=== PATIENT | male | born 1960 | race Caucasian/White ===

== ENCOUNTER 2017-06-23 16:08 | Inpatient (IN) | payer MEDICARE ==
[2017-06-23] MEDS: IPRATROPIUM BROMIDE 0.5 MG/2.5 ML NEBU. NEB (16:42)
[2017-06-23] MEDS: ALBUTEROL SULFATE 2.5 MG/3 ML NEBU. CONT NEB (16:44)
[2017-06-23 16:57] LABS: INFLUENZA A PATIENT NEGATIVE (NEGATIVE); INFLUENZA B PATIENT NEGATIVE (NEGATIVE); OBC FLU VALID
[2017-06-23] MEDS ORDERED: dilTIAZem IV PUSH 25 MG/5 ML VIAL (17:03)
[2017-06-23] MEDS: dilTIAZem IV PUSH 25 MG/5 ML VIAL IVP (17:05)
[2017-06-23] MEDS: methylPREDNISolone SOD SUCC PF 125 MG/2 ML VIAL. IV (17:06)
[2017-06-23 17:10] LABS: ADD MAN DIFF? YES; BASO % 0 % (0-3); EOS % 0 % (0-3); HEMATOCRIT 40.1 % (39.0-53.0); HEMOGLOBIN 13.6 g/dL (13.0-17.5); LYMPH # 0.9 x10^3/uL (1.0-4.8); LYMPH % 4 % (24-48); MEAN CORPUSCULAR HEMOGLOBIN 31 pg (25-35); MEAN CORPUSCULAR HGB CONC 34 g/dL (31-37); MEAN CORPUSCULAR VOLUME 90 fL (79-100); MONO # 2.3 x10^3/uL (0.0-1.1); MONO % 10 % (0-9); NEUT # 19.3 x10^3uL (1.8-7.7); NEUT % 86 % (31-73); PLATELET COUNT 412 x10^3/uL (140-400); RED BLOOD COUNT 4.46 x10^6/uL (4.30-5.70); RED CELL DISTRIBUTION WIDTH 13.6 % (11.5-14.5); WHITE BLOOD COUNT 22.5 x10^3/uL (4.0-11.0)
[2017-06-23] MEDS: dilTIAZem VIAL 125 MG in IV DEXTROSE 5% 100 ML IV (17:13)
[2017-06-23 17:26] LABS: ANION GAP 6 (6-14); BLOOD UREA NITROGEN 29 mg/dL (8-26); BUN/CREATININE RATIO 22 (6-20); CALCIUM 9.4 mg/dL (8.5-10.1); CARBON DIOXIDE 32 mmol/L (21-32); CHLORIDE 88 mmol/L (98-107); CREATININE 1.3 mg/dL (0.7-1.3); GFR 56.5; GLUCOSE 164 mg/dL (70-99); POTASSIUM 4.1 mmol/L (3.5-5.1); SODIUM 126 mmol/L (136-145)
[2017-06-23] MEDS: OSELTAMIVIR 75 MG CAPSULE PO (17:26)
[2017-06-23 17:32] LABS: ALBUMIN 2.7 g/dL (3.4-5.0); ALBUMIN/GLOBULIN RATIO 0.5 (1.0-1.7); ALK PHOS 118 U/L (46-116); ALT (SGPT) 13 U/L (16-63); AST (SGOT) 19 U/L (15-37); TOTAL BILIRUBIN 0.4 mg/dL (0.2-1.0); TOTAL PROTEIN 8.4 g/dL (6.4-8.2)
[2017-06-23 17:34] LABS: LACTIC ACID 1.8 mmol/L (0.4-2.0)
[2017-06-23 17:35] LABS: TROPONINI < 0.017 ng/mL (0.000-0.055)
[2017-06-23 17:40] LABS: NT-PRO BNP 6292 pg/mL (0-124)
[2017-06-23] MEDS ORDERED: ACETAMINOPHEN 500 MG TABLET PO (18:00)
[2017-06-23] MEDS ORDERED: ONDANSETRON PF 4 MG/2 ML VIAL. IV (18:00)
[2017-06-23 18:07] LABS: BASE EXCESS COOX 1 mmol/L (-3-3); HCO3 COOX 30 mmol/L (21-28); METHEMOGLOBIN 0.5 % (0.0-1.9); OXYHEMOGLOBIN 88.4 %; PH COOX 7.29 (7.35-7.45); PO2 COOX 65 mmHg (65-108); SAT O2 COOX 90 % (92-99); TOTAL HEMOGLOBIN 14.5 g/dL
[2017-06-23 18:09] LABS: PCO2 COOX 64 mmHg (35-46)
[2017-06-23 18:10] LABS: FIO2 COOX 30
[2017-06-23] MEDS: AZITHRMYCN 500MG IVPB FOR OMNI 250 ML IV (18:12)
[2017-06-23 18:31] LABS: THYROID STIM HORMONE (TSH) 0.208 uIU/mL (0.358-3.74)
[2017-06-23] MEDS: FUROSEMIDE 40 MG/4 ML VIAL. IVP (18:41)
[2017-06-23] MEDS: MORPHINE SULFATE 2 MG/ML DISP.SYRIN. IV (18:42)
[2017-06-23 18:51] LABS: % BANDS 14 % (0-9); % LYMPHS 5 % (24-48); % MONOS 7 % (0-10); % SEGS 74 % (35-66); PLT ESTIMATE ADEQUATE (ADEQUATE); TOXIC GRANULATION SLIGHT; TOXIC VACUOLATION SLIGHT
[2017-06-23] MEDS ORDERED: MORPHINE SULFATE 4 MG/ML DISP.SYRIN. IV (19:00)
[2017-06-23] MEDS: LACTOBACILLUS RHAMNOSUS GG 1 CAPSULE. PO ×2 (21:00→21:16)
[2017-06-23] MEDS: BENZONATATE 100 MG CAPSULE. PO ×2 (21:00→21:15)
[2017-06-23] MEDS: methylPREDNISolone SOD SUCC PF 40 MG/ML VIAL. IV (21:15)
[2017-06-23 21:42] LABS: LACTIC ACID 1.6 mmol/L (0.4-2.0)
[2017-06-23] MEDS: MORPHINE SULFATE 4 MG/ML DISP.SYRIN. IV (23:18)
[2017-06-24 01:15] LABS: TROPONINI < 0.017 ng/mL (0.000-0.055)
[2017-06-24] MEDS: MORPHINE SULFATE 4 MG/ML DISP.SYRIN. IV (04:05)
[2017-06-24 05:03] LABS: ADD MAN DIFF? NO
[2017-06-24 05:15] LABS: BASO % 0 % (0-3); EOS % 0 % (0-3); HEMATOCRIT 39.5 % (39.0-53.0); HEMOGLOBIN 13.4 g/dL (13.0-17.5); LYMPH # 0.7 x10^3/uL (1.0-4.8); LYMPH % 4 % (24-48); MEAN CORPUSCULAR HEMOGLOBIN 31 pg (25-35); MEAN CORPUSCULAR HGB CONC 34 g/dL (31-37); MEAN CORPUSCULAR VOLUME 91 fL (79-100); MONO # 0.8 x10^3/uL (0.0-1.1); MONO % 4 % (0-9); NEUT # 17.5 x10^3uL (1.8-7.7); NEUT % 92 % (31-73); PLATELET COUNT 419 x10^3/uL (140-400); RED BLOOD COUNT 4.35 x10^6/uL (4.30-5.70); RED CELL DISTRIBUTION WIDTH 14.2 % (11.5-14.5); WHITE BLOOD COUNT 18.9 x10^3/uL (4.0-11.0)
[2017-06-24 05:31] LABS: ANION GAP 3 (6-14); BLOOD UREA NITROGEN 31 mg/dL (8-26); CALCIUM 9.6 mg/dL (8.5-10.1); CARBON DIOXIDE 36 mmol/L (21-32); CHLORIDE 90 mmol/L (98-107); CREATININE 1.2 mg/dL (0.7-1.3); GLUCOSE 175 mg/dL (70-99); POTASSIUM 5.1 mmol/L (3.5-5.1); SODIUM 129 mmol/L (136-145)
[2017-06-24] MEDS: methylPREDNISolone SOD SUCC PF 40 MG/ML VIAL. IV ×3 (05:58→21:26)
[2017-06-24] MEDS: HYDROcodone/APAP 5/325MG 1 TAB TABLET PO ×2 (08:36→16:27)
[2017-06-24] MEDS: BENZONATATE 100 MG CAPSULE. PO ×3 (08:36→20:38)
[2017-06-24] MEDS: NICOTINE 21MG PATCH. TD (08:38)
[2017-06-24] MEDS: LIDOCAINE (700MG/PATCH) PATCH. TD (08:38)
[2017-06-24] MEDS: LACTOBACILLUS RHAMNOSUS GG 1 CAPSULE. PO ×2 (08:39→20:38)
[2017-06-24 09:18] LABS: BASE EXCESS ABG 8 mmol/L (-3-3); HCO3 ABG 35 mmol/L (21-28); PH ABG 7.38 (7.35-7.45); PO2 ABG 71 mmHg (65-108); SAT O2 ABG 94 % (92-99)
[2017-06-24 09:22] LABS: FIO2 ABG 28; PCO2 ABG 62 mmHg (35-46)
[2017-06-24] MEDS ORDERED: hydrALAZINE 20 MG/ML VIAL. IVP (09:30)
[2017-06-24] MEDS ORDERED: ACETAMINOPHEN 325 MG TABLET. PO (09:30)
[2017-06-24] MEDS ORDERED: ONDANSETRON PF 4 MG/2 ML VIAL. IV (09:30)
[2017-06-24] MEDS ORDERED: DOCUSATE SODIUM 100 MG CAPSULE. PO (09:30)
[2017-06-24 10:17] LABS: BILIRUBIN,URINE NEGATIVE (NEG); CLARITY,URINE CLEAR; COLOR,URINE YELLOW; GLUCOSE,URINE NEGATIVE (NEG); NITRITE,URINE NEGATIVE (NEG); PH,URINE 6.5; PROTEIN,URINE 30 mg/dL (NEG-TRACE); UROBILINOGEN,URINE 0.2 mg/dL (0.2 mg/dL)
[2017-06-24 10:34] LABS: BACTERIA,URINE FEW /HPF (0-FEW); WBC,URINE OCC /HPF (0-4)
[2017-06-24 10:35] LABS: AMORPHOUS SEDIMENT,UR PRESENT /HPF; HYALINE CASTS, URINE FEW /HPF
[2017-06-24] MEDS: IPRATRPIUM/ALBUTEROL 0.5/2.5MG 3 ML NEBU. NEB ×3 (13:04→20:01)
[2017-06-24] MEDS: MORPHINE ER 15 MG TABLET.ER PO ×2 (13:15→20:38)
[2017-06-24] MEDS: ASPIRIN ENTERIC COATED 81 MG TABLET.DR. PO (13:15)
[2017-06-24] MEDS: cefTRIAXone IV Push 1 GM VIAL. IVP (17:29)
[2017-06-24] MEDS: ENOXAPARIN 40 MG/0.4 ML SYRINGE. SQ (17:29)
[2017-06-24] MEDS: AZITHROMYCIN 250 MG in IV NORMAL SALINE 250ML 250 ML IV (17:30)
[2017-06-24] MEDS ORDERED: PIP/TAZO PER PHARMACY MC (18:15)
[2017-06-24 20:10] LABS: MRSA BY PCR Negative (Negative)
[2017-06-24] MEDS: PIPERACILLIN/TAZOBACTAM 3.375 GM in IV NORMAL SALINE 50ML 50 ML IV (20:28)
[2017-06-24] MEDS: FAMOTIDINE 20 MG TABLET. PO (20:38)
[2017-06-25] MEDS: PIPERACILLIN/TAZOBACTAM 3.375 GM in IV NORMAL SALINE 50ML 50 ML IV ×6 (00:12→23:50)
[2017-06-25] MEDS: TEMAZEPAM 7.5 MG CAPSULE PO (00:29)
[2017-06-25] MEDS: traMADol 50 MG TABLET PO (00:29)
[2017-06-25] MEDS: HALOPERIDOL LACTATE 5 MG/ML VIAL. IVP ×4 (02:12→19:15)
[2017-06-25] MEDS: MORPHINE SULFATE 4 MG/ML DISP.SYRIN. IV ×3 (03:26→14:29)
[2017-06-25] MEDS: ALBUTEROL SULFATE 2.5 MG/3 ML NEBU. NEB (03:30)
[2017-06-25] MEDS: methylPREDNISolone SOD SUCC PF 40 MG/ML VIAL. IV ×3 (05:24→22:01)
[2017-06-25] MEDS: IPRATRPIUM/ALBUTEROL 0.5/2.5MG 3 ML NEBU. NEB ×4 (07:25→19:48)
[2017-06-25] MEDS: LACTOBACILLUS RHAMNOSUS GG 1 CAPSULE. PO ×2 (09:00→21:00)
[2017-06-25] MEDS: ASPIRIN ENTERIC COATED 81 MG TABLET.DR. PO (09:00)
[2017-06-25] MEDS: MORPHINE ER 15 MG TABLET.ER PO ×3 (09:00→21:00)
[2017-06-25] MEDS: BENZONATATE 100 MG CAPSULE. PO ×3 (09:00→21:00)
[2017-06-25] MEDS: ENOXAPARIN 40 MG/0.4 ML SYRINGE. SQ (13:47)
[2017-06-25] MEDS: diphenhydrAMINE 50 MG/ML VIAL IVP ×2 (14:20→22:28)
[2017-06-25 15:30] LABS: SPECIMEN SOURCE Urine (.); STREP PNEUMO ANTIGEN Negative (Negative)
[2017-06-25] MEDS: AZITHROMYCIN 250 MG in IV NORMAL SALINE 250ML 250 ML IV (18:00)
[2017-06-25] MEDS: FAMOTIDINE 20 MG TABLET. PO (21:00)
[2017-06-26] MEDS: MORPHINE SULFATE 4 MG/ML DISP.SYRIN. IV (00:49)
[2017-06-26] MEDS: guaiFENesin DM 200MG/20MG 10 ML SYRUP PO ×2 (01:32→08:07)
[2017-06-26] MEDS: HALOPERIDOL LACTATE 5 MG/ML VIAL. IVP (02:25)
[2017-06-26] MEDS: PIPERACILLIN/TAZOBACTAM 3.375 GM in IV NORMAL SALINE 50ML 50 ML IV ×4 (05:34→23:40)
[2017-06-26] MEDS: methylPREDNISolone SOD SUCC PF 40 MG/ML VIAL. IV ×3 (05:36→22:09)
[2017-06-26] MEDS: IPRATRPIUM/ALBUTEROL 0.5/2.5MG 3 ML NEBU. NEB ×3 (07:53→14:50)
[2017-06-26] MEDS: LIDOCAINE (700MG/PATCH) PATCH. TD (08:03)
[2017-06-26] MEDS: ASPIRIN ENTERIC COATED 81 MG TABLET.DR. PO (08:04)
[2017-06-26] MEDS: BENZONATATE 100 MG CAPSULE. PO ×3 (08:04→20:24)
[2017-06-26] MEDS: NICOTINE 21MG PATCH. TD (08:07)
[2017-06-26] MEDS: LACTOBACILLUS RHAMNOSUS GG 1 CAPSULE. PO ×2 (08:07→20:24)
[2017-06-26] MEDS: MORPHINE ER 15 MG TABLET.ER PO ×2 (09:00→20:25)
[2017-06-26] MEDS: HYDROcodone/APAP 5/325MG 1 TAB TABLET PO ×4 (12:03→21:04)
[2017-06-26] MEDS: ENOXAPARIN 40 MG/0.4 ML SYRINGE. SQ (12:57)
[2017-06-26] MEDS: AZITHROMYCIN 250 MG in IV NORMAL SALINE 250ML 250 ML IV (18:09)
[2017-06-26] MEDS: FAMOTIDINE 20 MG TABLET. PO (20:24)
[2017-06-26] MEDS: diphenhydrAMINE 50 MG/ML VIAL IVP (20:40)
[2017-06-27] MEDS: TEMAZEPAM 7.5 MG CAPSULE PO (00:39)
[2017-06-27] MEDS: HYDROcodone/APAP 10/325 1 TAB TABLET PO ×5 (02:28→20:12)
[2017-06-27 05:55] LABS: ADD MAN DIFF? NO
[2017-06-27] MEDS: PIPERACILLIN/TAZOBACTAM 3.375 GM in IV NORMAL SALINE 50ML 50 ML IV ×2 (05:56→12:38)
[2017-06-27] MEDS: methylPREDNISolone SOD SUCC PF 40 MG/ML VIAL. IV (05:56)
[2017-06-27 06:02] LABS: BASO % 0 % (0-3); EOS % 0 % (0-3); HEMOGLOBIN 12.2 g/dL (13.0-17.5); LYMPH # 1.5 x10^3/uL (1.0-4.8); LYMPH % 7 % (24-48); MEAN CORPUSCULAR HEMOGLOBIN 30 pg (25-35); MEAN CORPUSCULAR HGB CONC 33 g/dL (31-37); MEAN CORPUSCULAR VOLUME 90 fL (79-100); MONO # 0.7 x10^3/uL (0.0-1.1); MONO % 3 % (0-9); NEUT # 18.3 x10^3uL (1.8-7.7); NEUT % 89 % (31-73); PLATELET COUNT 557 x10^3/uL (140-400); RED CELL DISTRIBUTION WIDTH 14.5 % (11.5-14.5); WHITE BLOOD COUNT 20.5 x10^3/uL (4.0-11.0)
[2017-06-27 06:25] LABS: ANION GAP 6 (6-14); BLOOD UREA NITROGEN 21 mg/dL (8-26); CALCIUM 8.7 mg/dL (8.5-10.1); CARBON DIOXIDE 32 mmol/L (21-32); CHLORIDE 98 mmol/L (98-107); CREATININE 0.9 mg/dL (0.7-1.3); GFR 86.4; GLUCOSE 217 mg/dL (70-99); POTASSIUM 3.9 mmol/L (3.5-5.1); SODIUM 136 mmol/L (136-145)
[2017-06-27] MEDS: IPRATRPIUM/ALBUTEROL 0.5/2.5MG 3 ML NEBU. NEB ×5 (07:33→19:55)
[2017-06-27] MEDS: NICOTINE 21MG PATCH. TD (08:00)
[2017-06-27] MEDS: BENZONATATE 100 MG CAPSULE. PO ×4 (08:01→21:00)
[2017-06-27] MEDS: LIDOCAINE (700MG/PATCH) PATCH. TD (08:01)
[2017-06-27] MEDS: LACTOBACILLUS RHAMNOSUS GG 1 CAPSULE. PO ×2 (08:01→21:11)
[2017-06-27] MEDS: ASPIRIN ENTERIC COATED 81 MG TABLET.DR. PO (08:02)
[2017-06-27] MEDS: MORPHINE ER 15 MG TABLET.ER PO ×2 (08:03→21:11)
[2017-06-27] MEDS: LISINOPRIL 20 MG TABLET PO (08:24)
[2017-06-27] MEDS: diphenhydrAMINE 50 MG/ML VIAL IVP ×2 (08:44→21:10)
[2017-06-27] MEDS: ENOXAPARIN 40 MG/0.4 ML SYRINGE. SQ (13:49)
[2017-06-27] MEDS: FAMOTIDINE 20 MG TABLET. PO (21:00)
[2017-06-27] MEDS: AMOXICILLIN/K CLAV 500/125MG TABLET. PO (21:10)
[2017-06-27 23:12] LABS: C DIFF BY PCR Negative (Negative)
[2017-06-28] MEDS: HYDROcodone/APAP 10/325 1 TAB TABLET PO ×2 (02:37→13:18)
[2017-06-28 05:00] LABS: BASO # 0.1 x10^3/uL (0.0-0.2); BASO % 0 % (0-3); EOS # 0.1 x10^3/uL (0.0-0.7); EOS % 0 % (0-3); HEMATOCRIT 38.7 % (39.0-53.0); HEMOGLOBIN 12.4 g/dL (13.0-17.5); LYMPH # 3.1 x10^3/uL (1.0-4.8); LYMPH % 12 % (24-48); MEAN CORPUSCULAR HEMOGLOBIN 29 pg (25-35); MEAN CORPUSCULAR HGB CONC 32 g/dL (31-37); MEAN CORPUSCULAR VOLUME 90 fL (79-100); MONO # 1.4 x10^3/uL (0.0-1.1); MONO % 5 % (0-9); NEUT # 22.1 x10^3uL (1.8-7.7); NEUT % 83 % (31-73); PLATELET COUNT 600 x10^3/uL (140-400); RED BLOOD COUNT 4.29 x10^6/uL (4.30-5.70); RED CELL DISTRIBUTION WIDTH 14.6 % (11.5-14.5); WHITE BLOOD COUNT 26.7 x10^3/uL (4.0-11.0)
[2017-06-28 05:35] LABS: ADD MAN DIFF? YES
[2017-06-28 05:57] LABS: ANION GAP 4 (6-14); BLOOD UREA NITROGEN 14 mg/dL (8-26); CALCIUM 8.6 mg/dL (8.5-10.1); CARBON DIOXIDE 33 mmol/L (21-32); CHLORIDE 103 mmol/L (98-107); CREATININE 0.7 mg/dL (0.7-1.3); GFR 115.4; GLUCOSE 110 mg/dL (70-99); POTASSIUM 3.6 mmol/L (3.5-5.1); SODIUM 140 mmol/L (136-145)
[2017-06-28] MEDS: MORPHINE ER 15 MG TABLET.ER PO (08:38)
[2017-06-28] MEDS: LACTOBACILLUS RHAMNOSUS GG 1 CAPSULE. PO (08:39)
[2017-06-28] MEDS: ASPIRIN ENTERIC COATED 81 MG TABLET.DR. PO (08:39)
[2017-06-28] MEDS: predniSONE 10 MG TABLET PO (08:40)
[2017-06-28] MEDS: AMOXICILLIN/K CLAV 500/125MG TABLET. PO (08:40)
[2017-06-28] MEDS: LISINOPRIL 20 MG TABLET PO (08:41)
[2017-06-28] MEDS: BENZONATATE 100 MG CAPSULE. PO ×2 (08:41→14:11)
[2017-06-28] MEDS: IPRATRPIUM/ALBUTEROL 0.5/2.5MG 3 ML NEBU. NEB ×3 (09:13→15:59)
[2017-06-28 09:57] LABS: % BANDS 2 % (0-9); % LYMPHS 24 % (24-48); % MONOS 7 % (0-10); % SEGS 67 % (35-66)
[2017-06-28 09:58] LABS: ANISOCYTOSIS SLIGHT; PLT ESTIMATE INCREASED (ADEQUATE); TOXIC GRANULATION PRESENT
[2017-06-30] MEDS ORDERED: predniSONE 20 MG TABLET PO (09:00)
[2017-07-02] MEDS ORDERED: predniSONE 10 MG TABLET PO (09:00)
== END 2017-06-28 16:35 | disposition home or self-care (01) | DRG 177 ==
LOC: ER 16:08 → 1 WEST ICU 17:00 → 2 NORTH 06-24 19:47
PROC: 5A09357 Assistance with Respiratory Ventilation, Less than 24 Consecutive Hours, Continuous Positive Airway Pressure (ICD-10-PCS; principal; 2017-06-23)
PROC: 5A09357 Assistance with Respiratory Ventilation, Less than 24 Consecutive Hours, Continuous Positive Airway Pressure (ICD-10-PCS; 2017-06-24)
PROC: 5A09357 Assistance with Respiratory Ventilation, Less than 24 Consecutive Hours, Continuous Positive Airway Pressure (ICD-10-PCS; 2017-06-25)
DX: J15.6 Pneumonia due to other Gram-negative bacteria (principal); J96.21 Acute and chronic respiratory failure with hypoxia; G93.41 Metabolic encephalopathy; J84.9 Interstitial pulmonary disease, unspecified; E44.0 Moderate protein-calorie malnutrition; E87.1 Hypo-osmolality and hyponatremia; I48.0 Paroxysmal atrial fibrillation; J96.22 Acute and chronic respiratory failure with hypercapnia; I42.9 Cardiomyopathy, unspecified; I50.32 Chronic diastolic (congestive) heart failure; J44.0 Chronic obstructive pulmonary disease with (acute) lower respiratory infection; J44.1 Chronic obstructive pulmonary disease with (acute) exacerbation; I25.3 Aneurysm of heart; I11.0 Hypertensive heart disease with heart failure; E78.00 Pure hypercholesterolemia, unspecified; E78.5 Hyperlipidemia, unspecified; E87.6 Hypokalemia; F17.200 Nicotine dependence, unspecified, uncomplicated; F43.10 Post-traumatic stress disorder, unspecified; G89.29 Other chronic pain; H91.90 Unspecified hearing loss, unspecified ear; I25.10 Atherosclerotic heart disease of native coronary artery without angina pectoris; M06.9 Rheumatoid arthritis, unspecified; M19.90 Unspecified osteoarthritis, unspecified site; F17.210 Nicotine dependence, cigarettes, uncomplicated; T38.0X5A Adverse effect of glucocorticoids and synthetic analogues, initial encounter; Z82.49 Family history of ischemic heart disease and other diseases of the circulatory system; Z86.73 Personal history of transient ischemic attack (TIA), and cerebral infarction without residual deficits; Z91.19 Patient's noncompliance with other medical treatment and regimen; Z95.810 Presence of automatic (implantable) cardiac defibrillator; Y92.89 Other specified places as the place of occurrence of the external cause; Z68.20 Body mass index [BMI] 20.0-20.9, adult; Z88.1 Allergy status to other antibiotic agents
CPT/HCPCS: 36415; 36600; 70450; 71045; 71250; 74176; 80048; 80053; 81001; 82805; 83605; 83880; 84443; 84484; 85007; 85025; 87040; 87324; 87449; 87641; 87804; 87804-59; 93005; 93306; 94640; 94644; 94660; 94760; 96365; 96367; 96375; 97116-GP; 97162-GP; 97166-GO; 97530-GO; 97530-GP; 97535-GO; 99285; 99285-25; 99406; J0456; J0690; J0696; J1200; J1630; J1650; J1940; J2060; J2270; J2543; J2920; J2930; J3490; J7050; J7512; J7613; J7620; J7644

== ENCOUNTER 2018-09-01 00:28 | Inpatient (IN) | payer MEDICARE ==
[2018-09-01] VITALS (20 sets, daily range): BP systolic 89–149; BP diastolic 50–70
[~2018-09-01] VITALS: Ht 175.3 cm; Wt 74.8 kg
[~2018-09-01 00:28] MED LIST: AMOX1TAB10 PO; ASPI-482 PO; BENZ-8 PO; DILT120C85 PO; FAMO20TA5 PO; HYDR-2769 PO; LISI-334 PO; MORP30TA83 PO; PRED-220 PO
[2018-09-01] MEDS ORDERED: methylPREDNISolone SOD SUCC PF 125 MG/2 ML VIAL. IV ONE (00:45)
[2018-09-01 00:54] LABS: BASE EXCESS ABG -2 mmol/L (-3-3); CORRECTED PCO2 ABG 57 mmHg; CORRECTED PH ABG 7.28; CORRECTED PO2 ABG 67 mmHg; HCO3 ABG 26 mmol/L (21-28); SAT O2 ABG 89 % (92-99)
[2018-09-01 00:56] LABS: FIO2 ABG 28; PCO2 ABG 54 mmHg (35-46); PO2 ABG 61 mmHg (65-108)
[2018-09-01] MEDS ORDERED: IPRATRPIUM/ALBUTEROL 0.5/2.5MG 3 ML NEBU. NEB ONE (01:00)
[2018-09-01] MEDS ORDERED: IV NORMAL SALINE 1000ML BAG 1,000 ML IV ONE ×2 (01:00→03:00)
[2018-09-01 01:22] LABS: BASO % 0 % (0-3); EOS % 0 % (0-3); HEMATOCRIT 45.2 % (39.0-53.0); HEMOGLOBIN 14.3 g/dL (13.0-17.5); LYMPH # 0.9 x10^3/uL (1.0-4.8); LYMPH % 5 % (24-48); MEAN CORPUSCULAR HEMOGLOBIN 30 pg (25-35); MEAN CORPUSCULAR HGB CONC 32 g/dL (31-37); MEAN CORPUSCULAR VOLUME 96 fL (79-100); MONO % 6 % (0-9); NEUT # 15.6 x10^3uL (1.8-7.7); NEUT % 89 % (31-73); PLATELET COUNT 239 x10^3/uL (140-400); RED BLOOD COUNT 4.73 x10^6/uL (4.30-5.70); RED CELL DISTRIBUTION WIDTH 17.4 % (11.5-14.5); WHITE BLOOD COUNT 17.6 x10^3/uL (4.0-11.0)
[2018-09-01] MEDS ORDERED: cefTRIAXone IV Push 1 GM VIAL. IVP ONE (01:30)
[2018-09-01 01:31] LABS: CREATININE 1.8 mg/dL (0.7-1.3); GFR 38.7; POTASSIUM 5.3 mmol/L (3.5-5.1)
[2018-09-01 01:44] LABS: ALBUMIN 4.2 g/dL (3.4-5.0); ALBUMIN/GLOBULIN RATIO 1.2 (1.0-1.7); MAGNESIUM 2.9 mg/dL (1.8-2.4); TOTAL BILIRUBIN 0.5 mg/dL (0.2-1.0); TOTAL PROTEIN 7.8 g/dL (6.4-8.2)
--- NOTE | 2018-09-01 02:05 | RAD ---
PQRS Compliance Statement: One or more of the following individualized dose reduction techniques were utilized for this examination: 1. Automated exposure control 2. Adjustment of the mA and/or kV according to patient size 3. Use of iterative reconstruction technique CT HEAD AND CERVICAL SPINE WITHOUT CONTRAST History: Altered mental status, trauma. Comparison: CT head without contrast, June 25, 2017. Procedure: Axial images are obtained of the head from the skull base through the vertex without IV contrast. Noncontrast helical CT of the cervical spine was performed. Axial, sagittal, and coronal reconstructions were obtained. Findings: The ventricles and sulci are normal for the patient's age. There is mild supratentorial white matter hypoattenuation. This is a nonspecific finding but is commonly due to chronic small vessel ischemic disease in a patient of this age. No mass-effect, midline shift, hemorrhage or obvious acute infarction is identified. Basilar cisterns are patent. Bone windows demonstrate no significant calvarial abnormality. There is mucus retention cyst or polyp in the left maxillary sinus, incompletely imaged. Mucosal thickening bilateral ethmoid and left sphenoid sinuses. Mastoid air cells are well aerated. There is no evidence of acute fracture or acute malalignment of the cervical spine. No perched or jumped facet joints. Facet joints are mildly hypertrophic. There is disc space narrowing and degenerative endplate spurring and uncinate process hypertrophy of C5/C6, C6/C7, and C7/T1. There is minimal grade 1 retrolisthesis of C4 on C5. The alignment is otherwise maintained. The cranial vertebral junction is intact. Visualized soft tissues of the neck demonstrate no significant abnormalities. Mild biapical pleural parenchymal scarring. The visualized lung apices are otherwise clear. Right chest cardiac pacer wires are partially seen. IMPRESSION: 1. No acute intracranial abnormality. 2. No acute fracture of the cervical spine. Electronically signed by: Sergio Cancino MD (09/01/2018 2:03 AM) [facility]
[2018-09-01 02:07] LABS: ACETAMIN < 2 mcg/ml (10-30); ETHANOL < 10 mg/dL (0-10); SALIC 2.8 mg/dL (2.8-20.0)
--- NOTE | 2018-09-01 02:15 | PHYS DOC ---
Past Medical History Past Medical History: COPD, High Cholesterol Additional Past Medical Histor: vtach/a.fib PTSD Past Surgical History: Pacemaker Additional Past Surgical Histo: pacemaker/defib. back sx Alcohol Use: None Drug Use: None Adult General Chief Complaint Chief Complaint: OVERDOSE HPI HPI Patient is a 58 year old male brought in by ambulance chief complaint of altered mental status and shortness of breath. did tell me was sick for 3 days with cough hypoxic yesterday into the 60s he does take morphine and hydrocodone every day allegedly did not take any extra pills per the paramedics sat was in the mid 60s they did go out once and then they went back shortly later because he had tried to refuse transport. They did give 0.4 Narcan with improvement in mental status he was breathing 7 times a minute and then when they gave him Narcan he was breathing about 20 times a minute after that. He is satting okay on 3 L nasal cannula for the paramedics he is not normally on oxygen. SAYS HES Been feeling warm to the touch she's been coughing last co uple of days WELL. He is still smoking. He also fell earlier today he hit his for head he complains of some neck pain as well we placed him in a collar immediately upon arrival to the emergency room. Patient also describes lower abdominal pain left-sided difficult to obtain further history due to the patient's altered mental status. Review of Systems Review of Systems Limited by altered mental status Current Medications Current Medications Current Medications Medications (Trade) Dose Ordered Sig/Lolis Start Time Stop Time Status Last Admin Dose Admin Albuterol/ Ipratropium (Duoneb) 3 ml 1X ONCE 09/01/18 01:00 09/01/18 01:01 DC 09/01/18 00:59 3 ML Ceftriaxone Sodium (Rocephin) 1 gm 1X ONCE 09/01/18 01:30 09/01/18 01:31 DC 09/01/18 01:54 1 GM Doxycycline Hyclate 100 mg/ Dextrose 100 ml @ 50 mls/hr 1X ONCE 09/01/18 02:30 09/01/18 04:29 09/01/18 02:21 50 MLS/HR Methylprednisolone Sodium Succinate (SOLU-Medrol 125MG VIAL) 125 mg 1X ONCE 09/01/18 00:45 09/01/18 00:57 DC 09/01/18 00:53 125 MG Sodium Chloride 1,000 ml @ 1,000 mls/hr 1X ONCE 09/01/18 01:00 09/01/18 01:59 DC 09/01/18 00:54 1,000 MLS/HR Allergies Allergies Allergies Coded Allergies Type Severity Reaction Last Updated Verified bupropion Allergy Intermediate 04/17/16 Yes Physical Exam Physical Exam Constitutional: Well developed, overall ill-appearing pale dry mucous membranes HENT: Normocephalic, abrasion noted forehead., bilateral external ears normal, oropharynx , no oral exudates, nose normal. [] Eyes: PERRLA, EOMI, conjunctiva normal, no discharge. [] Pupils were 3 mm and reactive bilaterally Neck: Normal range of motion, midline tenderness noted C3-4 collar placed urgently Cardiovascular: Mild tachycardia no definite murmurs Lungs & Thorax: Left greater than right wheezing. Abdomen: Bowel sounds normal, soft, left lower quadrant tenderness, no masses, no pulsatile masses. Skin: Warm, dry, no erythema, no rash. Back: Tenderness to palpation on the back Extremities: No tenderness, no cyanosis, no clubbing, ROM intact, trace edema Neurologic: Alert and oriented X 2, normal motor function, normal sensory function, no focal deficits noted. Psychologic: Affect normal, judgement normal, mood normal. Current Patient Data Vital Signs Vital Signs Date Time Temp Pulse Resp B/P (MAP) Pulse Ox O2 Delivery O2 Flow Rate FiO2 09/01/18 01:49 BiPAP/CPAP 09/01/18 01:49 90 09/01/18 01:41 122 138/69 (92) 3.0 09/01/18 00:28 101.3 13 101.3 Lab Values Laboratory Tests Test 09/01/18 00:43 09/01/18 00:50 09/01/18 01:00 09/01/18 02:15 White Blood Count 17.6 x10^3/uL (4.0-11.0) H Red Blood Count 4.73 x10^6/uL (4.30-5.70) Hemoglobin 14.3 g/dL (13.0-17.5) Hematocrit 45.2 % (39.0-53.0) Mean Corpuscular Volume 96 fL (79-100) Mean Corpuscular Hemoglobin 30 pg (25-35) Mean Corpuscular Hemoglobin Concent 32 g/dL (31-37) Red Cell Distribution Width 17.4 % (11.5-14.5) H Platelet Count 239 x10^3/uL (140-400) Neutrophils (%) (Auto) 89 % (31-73) H Lymphocytes (%) (Auto) 5 % (24-48) L Monocytes (%) (Auto) 6 % (0-9) Eosinophils (%) (Auto) 0 % (0-3) Basophils (%) (Auto) 0 % (0-3) Neutrophils # (Auto) 15.6 x10^3uL (1.8-7.7) H Lymphocytes # (Auto) 0.9 x10^3/uL (1.0-4.8) L Monocytes # (Auto) 1.0 x10^3/uL (0.0-1.1) Eosinophils # (Auto) 0.0 x10^3/uL (0.0-0.7) Basophils # (Auto) 0.0 x10^3/uL (0.0-0.2) Platelet Estimate Pending Sodium Level 140 mmol/L (136-145) Potassium Level 5.3 mmol/L (3.5-5.1) H Chloride Level 99 mmol/L (98-107) Carbon Dioxide Level 28 mmol/L (21-32) Anion Gap 13 (6-14) Blood Urea Nitrogen 37 mg/dL (8-26) H Creatinine 1.8 mg/dL (0.7-1.3) H Estimated GFR (Cockcroft-Gault) 38.7 BUN/Creatinine Ratio 21 (6-20) H Glucose Level 130 mg/dL (70-99) H Calcium Level 9.0 mg/dL (8.5-10.1) Magnesium Level 2.9 mg/dL (1.8-2.4) H Total Bilirubin 0.5 mg/dL (0.2-1.0) Aspartate Amino Transferase (AST) 572 U/L (15-37) H Alanine Aminotransferase (ALT) 75 U/L (16-63) H Alkaline Phosphatase 103 U/L (46-116) Troponin I Quantitative 0.089 ng/mL (0.000-0.055) OH-Xfb-R-Type Natriuretic Peptide 6612 pg/mL (0-124) H Total Protein 7.8 g/dL (6.4-8.2) Albumin 4.2 g/dL (3.4-5.0) Albumin/Globulin Ratio 1.2 (1.0-1.7) Salicylates Level 2.8 mg/dL (2.8-20.0) Salicylate Last Dose Date Salicylate Last Dose Time Acetaminophen Level < 2 mcg/ml (10-30) L Acetaminophen Last Dose Date Acetaminophen Last Dose Time Ethyl Alcohol Level < 10 mg/dL (0-10) O2 Saturation 89 % (92-99) L Arterial Blood pH 7.30 (7.35-7.45) L Arterial Blood pH (Temp corrected) 7.28 Arterial Blood pCO2 at Patient Temp 54 mmHg (35-46) H Arterial Blood pCO2 (Temp correct) 57 mmHg Arterial Blood pO2 at Patient Temp 61 mmHg (65-108) L Arterial Blood pO2 (Temp corrected) 67 mmHg Arterial Blood HCO3 26 mmol/L (21-28) Arterial Blood Base Excess -2 mmol/L (-3-3) FiO2 28 Lactic Acid Level 2.5 mmol/L (0.4-2.0) H Urine Collection Type U cath Urine Color Franca Urine Clarity Clear Urine pH 5.0 Urine Specific [place] 1.025 Urine Protein Negative mg/dL (NEG-TRACE) Urine Glucose (UA) Negative mg/dL (NEG) Urine Ketones (Stick) Negative mg/dL (NEG) Urine Blood Large (NEG) Urine Nitrite Negative (NEG) Urine Bilirubin Small (NEG) Urine Urobilinogen Dipstick 0.2 mg/dL (0.2 mg/dL) Urine Leukocyte Esterase Negative (NEG) Urine RBC 0 /HPF (0-2) Urine WBC Occ /HPF (0-4) Urine Squamous Epithelial Cells Occ /LPF Urine Amorphous Sediment Present /HPF Urine Bacteria 0 /HPF (0-FEW) Urine Hyaline Casts Moderate /HPF Urine Granular Casts Occasional /HPF Urine Mucus Marked /LPF Urine Opiates Screen Pos (NEG) Urine Methadone Screen Neg (NEG) Urine Barbiturates Neg (NEG) Urine Phencyclidine Screen Neg (NEG) Urine Amphetamine/Methamphetamine Neg (NEG) Urine Benzodiazepines Screen Pos (NEG) Urine Cocaine Screen Neg (NEG) Urine Cannabinoids Screen Neg (NEG) Urine Ethyl Alcohol Neg (NEG) Laboratory Tests 09/01/18 00:43 Laboratory Tests 09/01/18 00:43 EKG EKG Sinus tach rate 111 RSR prime pattern in V1 and V2 no STEMI[] Radiology/Procedures Radiology/Procedures [] Impressions: Chest x-rays appeared very poor quality film is rotated there may be a left middle lung area infiltrate, looks different than previous chest x-ray. PQRS Compliance Statement: One or more of the following individualized dose reduction techniques were utilized for this examination: 1. Automated exposure control 2. Adjustment of the mA and/or kV according to patient size 3. Use of iterative reconstruction technique CT HEAD AND CERVICAL SPINE WITHOUT CONTRAST History: Altered mental status, trauma. Comparison: CT head without contrast, June 25, 2017. Procedure: Axial images are obtained of the head from the skull base through the vertex without IV contrast. Noncontrast helical CT of the cervical spine was performed. Axial, sagittal, and coronal reconstructions were obtained. Findings: The ventricles and sulci are normal for the patient's age. There is mild supratentorial white matter hypoattenuation. This is a nonspecific finding but is commonly due to chronic small vessel ischemic disease in a patient of this age. No mass-effect, midline shift, hemorrhage or obvious acute infarction is identified. Basilar cisterns are patent. Bone windows demonstrate no significant calvarial abnormality. There is mucus retention cyst or polyp in the left maxillary sinus, incompletely imaged. Mucosal thickening bilateral ethmoid and left sphenoid sinuses. Mastoid air cells are well aerated. There is no evidence of acute fracture or acute malalignment of the cervical spine. No perched or jumped facet joints. Facet joints are mildly hypertrophic. There is disc space narrowing and degenerative endplate spurring and uncinate process hypertrophy of C5/C6, C6/C7, and C7/T1. There is minimal grade 1 retrolisthesis of C4 on C5. The alignment is otherwise maintained. The cranial vertebral junction is intact. Visualized soft tissues of the neck demonstrate no significant abnormalities. Mild biapical pleural parenchymal scarring. The visualized lung apices are otherwise clear. Right chest cardiac pacer wires are partially seen. IMPRESSION: 1. No acute intracranial abnormality. 2. No acute fracture of the cervical spine. Electronically signed by: Sergio Cancino MD (09/01/2018 2:03 AM) [facility] DICTATED and SIGNED BY: SERGIO CANCINO MD DATE: 09/01/18 0203 PQRS Compliance Statement: One or more of the following individualized dose reduction techniques were utilized for this examination: 1. Automated exposure control 2. Adjustment of the mA and/or kV according to patient size 3. Use of iterative reconstruction technique CT ABDOMEN PELVIS WO CONTRAST Clinical Indication: Left lower quadrant pain, fever. Comparison: CT chest abdomen and pelvis without contrast, June 24, 2017. Technique: Helical CT imaging of the abdomen and pelvis is performed without IV or oral contrast. Findings: Evaluation of solid organs and bowel is limited without oral and IV contrast, decreasing sensitivity for detection of pathology. There are cardiac pacer wires. Cardiac size is normal. Respiratory motion artifact in the lung bases. Mild atelectasis in the left lower lobe and right middle lobe. Stable nodule in the left lower lobe, image 6. Calcified granulomas in the spleen. Liver, gallbladder, pancreas, and adrenal glands are normal. Mild atherosclerotic calcification of the abdominal aorta, no aneurysm. No hydronephrosis. Stomach unremarkable. There is a dilated small bowel loop in the left midabdomen. No evidence of obstruction. The appendix is normal. Moderate colon stool volume. No colon wall thickening is seen. No abdominal adenopathy or free fluid. The urinary bladder is markedly distended, otherwise normal. Prostate size normal. No pelvic free fluid is seen. There is posterior fusion of L5-S1. There is interbody spacer of L5/S1. IMPRESSION: 1. Urinary bladder is markedly distended. 2. Dilated small bowel loop in the left midabdomen. No evidence of obstruction. 3. Moderate colon stool volume. Electronically signed by: Sergio Cancino MD (09/01/2018 2:19 AM) [facility] DICTATED and SIGNED BY: SERGIO CANCINO MD DATE: 09/01/18218 Hydropic gallbladder. There is cholelithiasis. Gallbladder wall thickness upper limits of normal measuring 3 mm. Sonographic Baker sign is negative. Common bile duct caliber is normal measuring 5 mm in diameter. The right kidney measures 10.6 cm in length and is without evidence of obstruction. Lower pole of the right kidney is incompletely visualized due to overlying bowel gas. Visualized portions of the aorta and IVC have normal caliber. IMPRESSION: Hydropic gallbladder. Cholelithiasis. Electronically signed by: Sergio Cancino MD (09/01/2018 3:55 AM) [facility] Course & Med Decision Making Course & Med Decision Making Pertinent Labs and Imaging studies reviewed. (See chart for details) []58-year-old male with multiple medical problems presenting with acute hypoxemic as well as hypercapnic respiratory failure. Fever noted septic workup initiated chest x-ray suggestive of possible pneumonia but it is a very poor quality films we had a CT abdomen and pelvis to search for other etiology that was essentially negative acute. Patient appears to be basically at his baseline mental status does have some head trauma but otherwise no obvious signs of meningitis. Of note patient did have good response to Narcan with the paramedics went from breathing 7 times a minute into the 20s perhaps he had aspiration event in the setting of that We gave antibiotics in the emergency room ceftriaxone and doxycycline IV fluid resuscitation. Repeat lactate was ordered for later. Regarding his respiratory failure he was stable on nasal cannula oxygenation but his PaO2 was 60.6 borderline given the elevated CO2 we did opt to place him on BiPAP for stabilization. Noted the troponin elevation is likely related to the myocardial strain in the setting of sepsis less likely acute coronary event Elevated AST unclear etiology did have some report of right upper quadrant pain by history with the although really not tender in that area abdominal ultra sound has been ordered CK is also pending. Drug screen so far negative Critical care time was 45 minutes exclusive of procedures. On reevaluation the patient looked much better after BiPAP treatment at 2:40 AM he was alert eyes open to voice says his breathing feels better. Admit to the ICU care of Dr. perry 2100 out of the bladder with a Khan catheter patient was unable to urinate Noted the elevated creatinine as well as elevated potassium this may be related to renal failure in setting of sepsis and/or postobstructive related to the above urinary retention should improve with IV fluid resuscitation and Khan catheter placement 4:30 AM noted the final read of the ultrasound. No definite cholecystitis on that I did put in for routine surgery consultation in the morning. Patient has multiple other medical issues including respiratory failure renal failure troponin leak etc. requiring stabilization prior to any intervention anyway. Dragon Disclaimer Dragon Disclaimer This electronic medical record was generated, in whole or in part, using a voice recognition dictation system. Departure Departure Impression: Primary Impression: Respiratory failure Additional Impressions: Severe sepsis Lactic acidosis Elevated LFTs Disposition: ADMITTED INPATIENT Admitting Physician: Guzman Perry Condition: GUARDED Referrals: ADRIANE DURAND (PCP) Problem Qualifiers CARTER COOK MD September 01, 2018 02:15
--- NOTE | 2018-09-01 02:22 | RAD ---
PQRS Compliance Statement: One or more of the following individualized dose reduction techniques were utilized for this examination: 1. Automated exposure control 2. Adjustment of the mA and/or kV according to patient size 3. Use of iterative reconstruction technique CT ABDOMEN PELVIS WO CONTRAST Clinical Indication: Left lower quadrant pain, fever. Comparison: CT chest abdomen and pelvis without contrast, June 24, 2017. Technique: Helical CT imaging of the abdomen and pelvis is performed without IV or oral contrast. Findings: Evaluation of solid organs and bowel is limited without oral and IV contrast, decreasing sensitivity for detection of pathology. There are cardiac pacer wires. Cardiac size is normal. Respiratory motion artifact in the lung bases. Mild atelectasis in the left lower lobe and right middle lobe. Stable nodule in the left lower lobe, image 6. Calcified granulomas in the spleen. Liver, gallbladder, pancreas, and adrenal glands are normal. Mild atherosclerotic calcification of the abdominal aorta, no aneurysm. No hydronephrosis. Stomach unremarkable. There is a dilated small bowel loop in the left midabdomen. No evidence of obstruction. The appendix is normal. Moderate colon stool volume. No colon wall thickening is seen. No abdominal adenopathy or free fluid. The urinary bladder is markedly distended, otherwise normal. Prostate size normal. No pelvic free fluid is seen. There is posterior fusion of L5-S1. There is interbody spacer of L5/S1. IMPRESSION: 1. Urinary bladder is markedly distended. 2. Dilated small bowel loop in the left midabdomen. No evidence of obstruction. 3. Moderate colon stool volume. Electronically signed by: Sergio Cancino MD (09/01/2018 2:19 AM) [facility]
[2018-09-01 02:23] LABS: BILIRUBIN,URINE SMALL (NEG); CLARITY,URINE CLEAR; COLOR,URINE AMBER; NITRITE,URINE NEGATIVE (NEG); PROTEIN,URINE NEGATIVE (NEG-TRACE); UROBILINOGEN,URINE 0.2 mg/dL (0.2 mg/dL)
[2018-09-01 02:29] LABS: BACTERIA,URINE 0 /HPF (0-FEW); BARBITURATES NEG (NEG); BENZODIAZEPINES POS (NEG); CANNABINOIDS NEG (NEG); COCAINE NEG (NEG); METHADONE NEG (NEG); OPIATES POS (NEG); PHENCYCLIDINE NEG (NEG); RBC,URINE 0 /HPF (0-2); WBC,URINE OCC /HPF (0-4)
[2018-09-01 02:30] LABS: AMORPHOUS SEDIMENT,UR PRESENT /HPF; GRANULAR CASTS,URINE OCCASIONAL /HPF; HYALINE CASTS, URINE MODERATE /HPF; SQUAMOUS EPITHELIAL CELL,UR OCC /LPF
[2018-09-01] MEDS ORDERED: DOXYCYCLINE HYCLATE 100 MG in IV DEXTROSE 5% 100ML 100 ML IV ONE (02:30)
[2018-09-01 02:48] LABS: AMPHETAMINE/METHAMPHETAMINE NEG (NEG)
[2018-09-01] MEDS ORDERED: ASPIRIN CHEWABLE 81 MG TABLET. PO ONE (03:00)
[2018-09-01] MEDS ORDERED: metroNIDAZOLE 500 MG TABLET ONE (03:08)
--- NOTE | 2018-09-01 03:58 | RAD ---
Right upper quadrant abdominal ultrasound History: Right upper quadrant pain, elevated liver function tests. Fever. Comparison: None. Technique: Transabdominal ultrasound images are obtained. Findings: The pancreas is obscured due to overlying bowel gas. Liver is normal in echogenicity. Right hepatic lobe measures 17.1 cm. Portal flow is hepatopedal. Hydropic gallbladder. There is cholelithiasis. Gallbladder wall thickness upper limits of normal measuring 3 mm. Sonographic Baker sign is negative. Common bile duct caliber is normal measuring 5 mm in diameter. The right kidney measures 10.6 cm in length and is without evidence of obstruction. Lower pole of the right kidney is incompletely visualized due to overlying bowel gas. Visualized portions of the aorta and IVC have normal caliber. IMPRESSION: Hydropic gallbladder. Cholelithiasis. Electronically signed by: Sergio Cancino MD (09/01/2018 3:55 AM) [facility]
[2018-09-01] MEDS ORDERED: VALIUM10 MG PO (04:43)
[2018-09-01] MEDS ORDERED: CRESTOR20 MG PO (04:44)
[2018-09-01 05:38] LABS: % LYMPHS 5 % (24-48); % MONOS 3 % (0-10); % SEGS 92 % (35-66); ANISOCYTOSIS SLIGHT; PLT ESTIMATE ADEQUATE (ADEQUATE)
--- NOTE | 2018-09-01 06:25 | EKG ---
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
--- NOTE | 2018-09-01 06:49 | NUR ---
Pt admitted to DR CRISOSTOMO to ICU room 107 at 0330 via [facility], accompanied by [employer]PL[employer] ADJUSTER, olu. Upon arrival, pt very drowsy, but does wake up on transfer from [facility] to ICU bed, and does answer name & date correctly, although still very drowsy. Admission assessment completed, much of health history completed from at bedside. Pt noted to have abrasion on forehead, states he has had multiple recent falls lately, and has been feeling poorly for the past 2-3 wks, complaining of abdomen "fullness" and was noted to have foul smelling urine for the past couple weeks. Pt currently drowsy but arousable, tolerating BIPAP well and all VSS.
[2018-09-01] MEDS ORDERED: HYDROcodone/APAP 5/325MG 1 TAB TABLET PO PRN (07:15)
--- NOTE | 2018-09-01 07:46 | RAD ---
Examination: PORTABLE CHEST 1V History: Shortness of breath Comparison/Correlation: None Findings: Portable upright frontal view of the chest was obtained. Dual lead right-sided ICD is present. Heart size normal. No pneumothorax. Pulmonary vasculature is within the upper limits of normal. No focal infiltrate or pleural effusion. No pneumothorax. Bony structures are grossly unremarkable. Impression: No focal infiltrate. Electronically signed by: Sam Landry MD (09/01/2018 7:43 AM) [facility]
--- NOTE | 2018-09-01 07:59 | PDOC2 ---
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 Patient is very drowsy on exam, answers mi nimal questions. From ER records, cough and unwell for 3 days at home. He denies any abdominal pain currently. He is oriented to place and time. On admission concerns for AMS, sepsis, respiratory failure Past Medical History Cardiovascular: CAD, CHF, HTN, Other Pulmonary: COPD CENTRAL NERVOUS SYSTEM: TIA Psych: Other Musculoskeletal: low back pain Rheumatologic: Rheumatoid arthritis Past Surgical History Past Surgical History: Pacemaker, Other Family History Family History: High Cholestrol, Hypertension Social History <1 pack per day ALCOHOL: none Drugs: None Current Problem List Problem List Problems Medical Problems: (1) Elevated LFTs Status: Acute (2) Lactic acidosis Status: Acute (3) Severe sepsis Status: Acute Current Medications Current Medications Current Medications Albuterol/ Ipratropium (Duoneb) 3 ml 1X ONCE NEB Last administered on 09/01/18at 00:59; Start 09/01/18 at 01:00; Stop 09/01/18 at 01:01; Status DC Methylprednisolone Sodium Succinate (SOLU-Medrol 125MG VIAL) 125 mg 1X ONCE IV Last administered on 09/01/18at 00:53; Start 09/01/18 at 00:45; Stop 09/01/18 at 00:57; Status DC Sodium Chloride 1,000 ml @ 1,000 mls/hr 1X ONCE IV Last administered on 09/01/18at 00:54; Start 09/01/18 at 01:00; Stop 09/01/18 at 01:59; Status DC Ceftriaxone Sodium (Rocephin) 1 gm 1X ONCE IVP Last administered on 09/01/18at 01:54; Start 09/01/18 at 01:30; Stop 09/01/18 at 01:31; Status DC Doxycycline Hyclate 100 mg/ Dextrose 100 ml @ 50 mls/hr 1X ONCE IV Last administered on 09/01/18at 02:21; Start 09/01/18 at 02:30; Stop 09/01/18 at 04:29; Status DC Albuterol/ Ipratropium (Duoneb) 3 ml RTQID NEB ; Start 09/01/18 at 08:00; Stop 09/02/18 at 07:59 Sodium Chloride 1,000 ml @ 1,000 mls/hr 1X ONCE IV Last administered on 09/01/18at 03:04; Start 09/01/18 at 03:00; Stop 09/01/18 at 03:59; Status DC Aspirin (Children'S Aspirin) 324 mg 1X ONCE PO Last administered on 09/01/18at 03:04; Start 09/01/18 at 03:00; Stop 09/01/18 at 03:01; Status DC Metronidazole 100 ml @ 100 mls/hr 1X ONCE IV Last administered on 09/01/18at 05:07; Start 09/01/18 at 03:30; Stop 09/01/18 at 04:29; Status DC Metronidazole (Flagyl) 500 mg STK-MED ONCE .ROUTE ; Start 09/01/18 at 03:08; Stop 09/01/18 at 03:09; Status DC Acetaminophen/ Hydrocodone Bitart (Lortab 5/325) 1 tab PRN Q4HRS PRN PO PAIN; Start 09/01/18 at 07:15 Aspirin (Ecotrin) 81 mg DAILY PO ; Start 09/01/18 at 09:00 Famotidine (Pepcid) 20 mg QHS PO ; Start 09/01/18 at 21:00 Lisinopril (Prinivil) 20 mg DAILY PO ; Start 09/02/18 at 09:00 Diazepam (Valium) 10 mg TID PO ; Start 09/01/18 at 09:00 Diltiazem HCl (Cardizem 24hr Cd) 120 mg DAILY PO ; Start 09/01/18 at 09:00 Atorvastatin Calcium (Lipitor) 80 mg QHS PO ; Start 09/01/18 at 21:00 Active Scripts Active Prednisone (Prednisone) 10 Mg Tablet 30 Mg PO DAILY Lisinopril 20 Mg Tablet 20 Mg PO DAILY 30 Days Diltiazem 24HR Cd (Diltiazem Hcl) 120 Mg Cap.er.24h 120 Mg PO DAILY 30 Days Famotidine 20 Mg Tablet 20 Mg PO QHS 14 Days Benzonatate 100 Mg Capsule 100 Mg PO [id number] 7 Days Amox Tr-K Clv 500-125 Mg Tab (Amoxicillin/Potassium Clav) 1 Each Tablet 1 Tab PO BID 3 Days Reported Crestor (Rosuvastatin Calcium) 20 Mg Tablet 1 Tab PO DAILY Valium (Diazepam) 10 Mg Tablet 10 Mg PO TID Hydrocodone-Apap 10-325 (Hydrocodone Bit/Acetaminophen) 1 Each Tablet 1 Tab PO PRN Q8HRS Ms Contin (Morphine Sulfate) 30 Mg Tablet.er 1 Tab PO BID Aspir 81 (Aspirin) 81 Mg Tablet. 81 Mg PO DAILY Allergies Allergies: Coded Allergies: bupropion (Verified Allergy, Intermediate, 04/17/16) ROS Review of System unable to obtain, patient significantly drowsy Physical Exam General: Cooperative, Other (opens eyes briefly ) HEENT: Mucous membr. moist/pink, Other (ecchymosis to forehead) Lungs: Other (off bipap currently ) Heart: Regular rate, Normal S1, Normal S2 Abdomen: Soft, No tenderness, No hepatosplenomegaly Extremities: No clubbing, No cyanosis Neuro: Normal tone Psych/Mental Status: Other (drowsy, oriented ) MUSCULOSKELETAL: No deformity, No swelling Vitals VITALS Vital Signs Date Time Temp Pulse Resp B/P (MAP) Pulse Ox O2 Delivery O2 Flow Rate FiO2 09/01/18 07:00 97.5 79 21 98/60 (73) 96 BiPAP/CPAP 97.5 09/01/18 01:41 3.0 Labs Labs Laboratory Tests Test 09/01/18 00:43 09/01/18 00:50 09/01/18 01:00 09/01/18 01:15 White Blood Count 17.6 x10^3/uL (4.0-11.0) Red Blood Count 4.73 x10^6/uL (4.30-5.70) Hemoglobin 14.3 g/dL (13.0-17.5) Hematocrit 45.2 % (39.0-53.0) Mean Corpuscular Volume 96 fL (79-100) Mean Corpuscular Hemoglobin 30 pg (25-35) Mean Corpuscular Hemoglobin Concent 32 g/dL (31-37) Red Cell Distribution Width 17.4 % (11.5-14.5) Platelet Count 239 x10^3/uL (140-400) Neutrophils (%) (Auto) 89 % (31-73) Lymphocytes (%) (Auto) 5 % (24-48) Monocytes (%) (Auto) 6 % (0-9) Eosinophils (%) (Auto) 0 % (0-3) Basophils (%) (Auto) 0 % (0-3) Neutrophils # (Auto) 15.6 x10^3uL (1.8-7.7) Lymphocytes # (Auto) 0.9 x10^3/uL (1.0-4.8) Monocytes # (Auto) 1.0 x10^3/uL (0.0-1.1) Eosinophils # (Auto) 0.0 x10^3/uL (0.0-0.7) Basophils # (Auto) 0.0 x10^3/uL (0.0-0.2) Segmented Neutrophils % 92 % (35-66) Lymphocytes % 5 % (24-48) Monocytes % 3 % (0-10) Platelet Estimate Adequate (ADEQUATE) Anisocytosis Slight Sodium Level 140 mmol/L (136-145) Potassium Level 5.3 mmol/L (3.5-5.1) Chloride Level 99 mmol/L (98-107) Carbon Dioxide Level 28 mmol/L (21-32) Anion Gap 13 (6-14) Blood Urea Nitrogen 37 mg/dL (8-26) Creatinine 1.8 mg/dL (0.7-1.3) Estimated GFR (Cockcroft-Gault) 38.7 BUN/Creatinine Ratio 21 (6-20) Glucose Level 130 mg/dL (70-99) Calcium Level 9.0 mg/dL (8.5-10.1) Magnesium Level 2.9 mg/dL (1.8-2.4) Total Bilirubin 0.5 mg/dL (0.2-1.0) Aspartate Amino Transf (AST/SGOT) 572 U/L (15-37) Alanine Aminotransferase (ALT/SGPT) 75 U/L (16-63) Alkaline Phosphatase 103 U/L (46-116) Troponin I Quantitative 0.089 ng/mL (0.000-0.055) LL-Eyh-O-Type Natriuretic Peptide 6612 pg/mL (0-124) Total Protein 7.8 g/dL (6.4-8.2) Albumin 4.2 g/dL (3.4-5.0) Albumin/Globulin Ratio 1.2 (1.0-1.7) Salicylates Level 2.8 mg/dL (2.8-20.0) Salicylate Last Dose Date Salicylate Last Dose Time Acetaminophen Level < 2 mcg/ml (10-30) Acetaminophen Last Dose Date Acetaminophen Last Dose Time Ethyl Alcohol Level < 10 mg/dL (0-10) O2 Saturation 89 % (92-99) Arterial Blood pH 7.30 (7.35-7.45) Arterial Blood pH (Temp corrected) 7.28 Arterial Blood pCO2 at Patient Temp 54 mmHg (35-46) Arterial Blood pCO2 (Temp correct) 57 mmHg Arterial Blood pO2 at Patient Temp 61 mmHg (65-108) Arterial Blood pO2 (Temp corrected) 67 mmHg Arterial Blood HCO3 26 mmol/L (21-28) Arterial Blood Base Excess -2 mmol/L (-3-3) FiO2 28 Lactic Acid Level 2.5 mmol/L (0.4-2.0) Creatine Kinase 19828 U/L (39-308) Test 09/01/18 02:15 09/01/18 04:15 Urine Collection Type U cath Urine Color Franca Urine Clarity Clear Urine pH 5.0 Urine Specific Dennis 1.025 Urine Protein Negative mg/dL (NEG-TRACE) Urine Glucose (UA) Negative mg/dL (NEG) Urine Ketones (Stick) Negative mg/dL (NEG) Urine Blood Large (NEG) Urine Nitrite Negative (NEG) Urine Bilirubin Small (NEG) Urine Urobilinogen Dipstick 0.2 mg/dL (0.2 mg/dL) Urine Leukocyte Esterase Negative (NEG) Urine RBC 0 /HPF (0-2) Urine WBC Occ /HPF (0-4) Urine Squamous Epithelial Cells Occ /LPF Urine Amorphous Sediment Present /HPF Urine Bacteria 0 /HPF (0-FEW) Urine Hyaline Casts Moderate /HPF Urine Granular Casts Occasional /HPF Urine Mucus Marked /LPF Urine Opiates Screen Pos (NEG) Urine Methadone Screen Neg (NEG) Urine Barbiturates Neg (NEG) Urine Phencyclidine Screen Neg (NEG) Urine Amphetamine/Methamphetamine Neg (NEG) Urine Benzodiazepines Screen Pos (NEG) Urine Cocaine Screen Neg (NEG) Urine Cannabinoids Screen Neg (NEG) Urine Ethyl Alcohol Neg (NEG) Lactic Acid Level 0.9 mmol/L (0.4-2.0) Troponin I Quantitative 0.090 ng/mL (0.000-0.055) Laboratory Tests Test 09/01/18 00:43 09/01/18 00:50 09/01/18 01:00 09/01/18 01:15 White Blood Count 17.6 x10^3/uL (4.0-11.0) Red Blood Count 4.73 x10^6/uL (4.30-5.70) Hemoglobin 14.3 g/dL (13.0-17.5) Hematocrit 45.2 % (39.0-53.0) Mean Corpuscular Volume 96 fL (79-100) Mean Corpuscular Hemoglobin 30 pg (25-35) Mean Corpuscular Hemoglobin Concent 32 g/dL (31-37) Red Cell Distribution Width 17.4 % (11.5-14.5) Platelet Count 239 x10^3/uL (140-400) Neutrophils (%) (Auto) 89 % (31-73) Lymphocytes (%) (Auto) 5 % (24-48) Monocytes (%) (Auto) 6 % (0-9) Eosinophils (%) (Auto) 0 % (0-3) Basophils (%) (Auto) 0 % (0-3) Neutrophils # (Auto) 15.6 x10^3uL (1.8-7.7) Lymphocytes # (Auto) 0.9 x10^3/uL (1.0-4.8) Monocytes # (Auto) 1.0 x10^3/uL (0.0-1.1) Eosinophils # (Auto) 0.0 x10^3/uL (0.0-0.7) Basophils # (Auto) 0.0 x10^3/uL (0.0-0.2) Segmented Neutrophils % 92 % (35-66) Lymphocytes % 5 % (24-48) Monocytes % 3 % (0-10) Platelet Estimate Adequate (ADEQUATE) Anisocytosis Slight Sodium Level 140 mmol/L (136-145) Potassium Level 5.3 mmol/L (3.5-5.1) Chloride Level 99 mmol/L (98-107) Carbon Dioxide Level 28 mmol/L (21-32) Anion Gap 13 (6-14) Blood Urea Nitrogen 37 mg/dL (8-26) Creatinine 1.8 mg/dL (0.7-1.3) Estimated GFR (Cockcroft-Gault) 38.7 BUN/Creatinine Ratio 21 (6-20) Glucose Level 130 mg/dL (70-99) Calcium Level 9.0 mg/dL (8.5-10.1) Magnesium Level 2.9 mg/dL (1.8-2.4) Total Bilirubin 0.5 mg/dL (0.2-1.0) Aspartate Amino Transf (AST/SGOT) 572 U/L (15-37) Alanine Aminotransferase (ALT/SGPT) 75 U/L (16-63) Alkaline Phosphatase 103 U/L (46-116) Troponin I Quantitative 0.089 ng/mL (0.000-0.055) TD-Jva-R-Type Natriuretic Peptide 6612 pg/mL (0-124) Total Protein 7.8 g/dL (6.4-8.2) Albumin 4.2 g/dL (3.4-5.0) Albumin/Globulin Ratio 1.2 (1.0-1.7) Salicylates Level 2.8 mg/dL (2.8-20.0) Salicylate Last Dose Date Salicylate Last Dose Time Acetaminophen Level < 2 mcg/ml (10-30) Acetaminophen Last Dose Date Acetaminophen Last Dose Time Ethyl Alcohol Level < 10 mg/dL (0-10) O2 Saturation 89 % (92-99) Arterial Blood pH 7.30 (7.35-7.45) Arterial Blood pH (Temp corrected) 7.28 Arterial Blood pCO2 at Patient Temp 54 mmHg (35-46) Arterial Blood pCO2 (Temp correct) 57 mmHg Arterial Blood pO2 at Patient Temp 61 mmHg (65-108) Arterial Blood pO2 (Temp corrected) 67 mmHg Arterial Blood HCO3 26 mmol/L (21-28) Arterial Blood Base Excess -2 mmol/L (-3-3) FiO2 28 Lactic Acid Level 2.5 mmol/L (0.4-2.0) Creatine Kinase 86443 U/L (39-308) Test 09/01/18 02:15 09/01/18 04:15 Urine Collection Type U cath Urine Color Franca Urine Clarity Clear Urine pH 5.0 Urine Specific Dennis 1.025 Urine Protein Negative mg/dL (NEG-TRACE) Urine Glucose (UA) Negative mg/dL (NEG) Urine Ketones (Stick) Negative mg/dL (NEG) Urine Blood Large (NEG) Urine Nitrite Negative (NEG) Urine Bilirubin Small (NEG) Urine Urobilinogen Dipstick 0.2 mg/dL (0.2 mg/dL) Urine Leukocyte Esterase Negative (NEG) Urine RBC 0 /HPF (0-2) Urine WBC Occ /HPF (0-4) Urine Squamous Epithelial Cells Occ /LPF Urine Amorphous Sediment Present /HPF Urine Bacteria 0 /HPF (0-FEW) Urine Hyaline Casts Moderate /HPF Urine Granular Casts Occasional /HPF Urine Mucus Marked /LPF Urine Opiates Screen Pos (NEG) Urine Methadone Screen Neg (NEG) Urine Barbiturates Neg (NEG) Urine Phencyclidine Screen Neg (NEG) Urine Amphetamine/Methamphetamine Neg (NEG) Urine Benzodiazepines Screen Pos (NEG) Urine Cocaine Screen Neg (NEG) Urine Cannabinoids Screen Neg (NEG) Urine Ethyl Alcohol Neg (NEG) Lactic Acid Level 0.9 mmol/L (0.4-2.0) Troponin I Quantitative 0.090 ng/mL (0.000-0.055) Assessment/Plan Assessment/Plan AMS, respiratory failure--takes multiple narcotics at home significant comorbidities-COPD, V tach, afib, + tobaccoism overall improvement since admission hydropic gallbladder--will review with Dr Del Toro, poor surgical candidate SHANI DEL TORO MD 09/01/18 [id number]: CONSULT Assessment/Plan Assessment/Plan Patient seen and examined by me resting comfortably in bed somewhat confused and lethargic. He denies any abdominal pain his abdomen is soft nondistended with normal active bowel sounds he is nontender in the right upper quadrant to deep palpation. Multiple comorbidities and narcotic use likely the cause of his hydropic appearing gallbladder. Concerning elevations in his troponins. At this point no surgical plans in relation to the gallbladder. Agree with Nickels assessment and plan VERENICE SARMIENTO APRN September 01, 2018 07:59 SHANI DEL TORO MD September 01, 2018 08:33
[2018-09-01] MEDS: IPRATRPIUM/ALBUTEROL 0.5/2.5MG 3 ML NEBU. NEB SCH ×5 (08:41→19:41)
[2018-09-01] MEDS: ASPIRIN ENTERIC COATED 81 MG TABLET.DR. PO SCH (08:50)
--- NOTE | 2018-09-01 08:51 | NUR ---
0900 PO meds held d/t pt is NPO and continues to be very lethargic
[2018-09-01] MEDS ORDERED: diazePAM 5 MG TABLET PO SCH (09:00)
--- NOTE | 2018-09-01 09:12 | NUR ---
Report given to WESTLEY Cohen, who has resumed care at this time.
--- NOTE | 2018-09-01 11:11 | NUR ---
SS following for discharge planning. SS reviewed pt chart. Pt is from home with spouse and is currently requiring oxygen. No discharge needs noted at this time. SS will continue to follow for discharge planning.
--- NOTE | 2018-09-01 11:25 | PDOC1 ---
History and Physical Date of Admission: Date of Admission DATE: 09/01/18 TIME: 11:19 Chief Complaint: Problems: (1) Palpitations (2) Left sided numbness (3) Atrial fibrillation with RVR (4) Respiratory failure (5) Hypoxia (6) Respiratory failure (7) Lactic acidosis (8) Severe sepsis (9) Elevated LFTs Chief Complain: Fall and mental status change History of Present Illness: HPI: Patient is a pleasant middle-aged male who takes to prescribe narcotics He apparently hasn't been feeling well for about 3 days He fell yesterday EMS was called he initially refused care but then they had return of little while later He was hypoxic and on breathing 7 times per minute They gave him some Narcan apparently he went to breathing 20 times per minute and his saturations improved He's been having a cough Rated at 10 out 10 Also complains of weakness as worse with trying to move He tried taking some home meds but that didn't seem to work Describes his symptoms agonizing I discussed case with ER physician Guerline patient with severe sepsis as he does have a white count and lactic acid elevation He also has gallstones were not consult GI as his transaminases are up We are also going to consult pulmonary as the patient is D setting Past Medical/Surgical History: PMH/PSH: Past Medical History: COPD, High Cholesterol Additional Past Medical Histor: vtach/a.fib PTSD Past Surgical History: Pacemaker Additional Past Surgical Histo: pacemaker/defib. back sx Allergies: Allergies: Coded Allergies: bupropion (Verified Allergy, Intermediate, 04/17/16) Family History: Family History: Hypertension Social History: Social Hisoty: He denies drinking I asked his she agrees he does not drink He apparently does smoke Denies drugs although is on 2 narcotics prescribed He is States he is retired Current Medications: Current Medications Current Medications Albuterol/ Ipratropium (Duoneb) 3 ml 1X ONCE NEB Last administered on 09/01/18at 00:59; Start 09/01/18 at 01:00; Stop 09/01/18 at 01:01; Status DC Methylprednisolone Sodium Succinate (SOLU-Medrol 125MG VIAL) 125 mg 1X ONCE IV Last administered on 09/01/18at 00:53; Start 09/01/18 at 00:45; Stop 09/01/18 at 00:57; Status DC Sodium Chloride 1,000 ml @ 1,000 mls/hr 1X ONCE IV Last administered on 09/01/18at 00:54; Start 09/01/18 at 01:00; Stop 09/01/18 at 01:59; Status DC Ceftriaxone Sodium (Rocephin) 1 gm 1X ONCE IVP Last administered on 09/01/18at 01:54; Start 09/01/18 at 01:30; Stop 09/01/18 at 01:31; Status DC Doxycycline Hyclate 100 mg/ Dextrose 100 ml @ 50 mls/hr 1X ONCE IV Last administered on 09/01/18at 02:21; Start 09/01/18 at 02:30; Stop 09/01/18 at 04:29; Status DC Albuterol/ Ipratropium (Duoneb) 3 ml RTQID NEB Last administered on 09/01/18at 08:41; Start 09/01/18 at 08:00; Stop 09/02/18 at 07:59 Sodium Chloride 1,000 ml @ 1,000 mls/hr 1X ONCE IV Last administered on 09/01/18at 03:04; Start 09/01/18 at 03:00; Stop 09/01/18 at 03:59; Status DC Aspirin (Children'S Aspirin) 324 mg 1X ONCE PO Last administered on 09/01/18at 03:04; Start 09/01/18 at 03:00; Stop 09/01/18 at 03:01; Status DC Metronidazole 100 ml @ 100 mls/hr 1X ONCE IV Last administered on 09/01/18at 05:07; Start 09/01/18 at 03:30; Stop 09/01/18 at 04:29; Status DC Metronidazole (Flagyl) 500 mg STK-MED ONCE .ROUTE ; Start 09/01/18 at 03:08; St op 09/01/18 at 03:09; Status DC Acetaminophen/ Hydrocodone Bitart (Lortab 5/325) 1 tab PRN Q4HRS PRN PO PAIN; Start 09/01/18 at 07:15 Aspirin (Ecotrin) 81 mg DAILY PO ; Start 09/01/18 at 09:00 Famotidine (Pepcid) 20 mg QHS PO ; Start 09/01/18 at 21:00 Lisinopril (Prinivil) 20 mg DAILY PO ; Start 09/02/18 at 09:00 Diazepam (Valium) 10 mg TID PO ; Start 09/01/18 at 09:00 Diltiazem HCl (Cardizem 24hr Cd) 120 mg DAILY PO ; Start 09/01/18 at 09:00 Atorvastatin Calcium (Lipitor) 80 mg QHS PO ; Start 09/01/18 at 21:00 Active Scripts Active Prednisone (Prednisone) 10 Mg Tablet 30 Mg PO DAILY Lisinopril 20 Mg Tablet 20 Mg PO DAILY 30 Days Diltiazem 24HR Cd (Diltiazem Hcl) 120 Mg Cap.er.24h 120 Mg PO DAILY 30 Days Famotidine 20 Mg Tablet 20 Mg PO QHS 14 Days Benzonatate 100 Mg Capsule 100 Mg PO [id number] Days Amox Tr-K Clv 500-125 Mg Tab (Amoxicillin/Potassium Clav) 1 Each Tablet 1 Tab PO BID 3 Days Reported Crestor (Rosuvastatin Calcium) 20 Mg Tablet 1 Tab PO DAILY Valium (Diazepam) 10 Mg Tablet 10 Mg PO TID Hydrocodone-Apap 10-325 (Hydrocodone Bit/Acetaminophen) 1 Each Tablet 1 Tab PO PRN Q8HRS Ms Contin (Morphine Sulfate) 30 Mg Tablet.er 1 Tab PO BID Aspir 81 (Aspirin) 81 Mg Tablet. 81 Mg PO DAILY ROS: Review of Systems Review of System REVIEW OF SYSTEMS: GENERAL: Complains of weakness SKIN: No bruising, hair changes or rashes. EYES: No blurred, double or loss of vision. NOSE AND THROAT: No history of nosebleeds, hoarseness or sore throat. HEART: No history of palpitations, chest pain or shortness of breath on exertion. LUNGS: Complains of shortness of breath and cough GASTROINTESTINAL: Denies changes in appetite, nausea, vomiting, diarrhea or constipation. GENITOURINARY: No history of frequency, urgency, hesitancy or nocturia. NEUROLOGIC: Denies history of numbness, tingling, tremor or weakness. PSYCHIATRIC: No history of panic, anxiety or depression. ENDOCRINE: No history of heat or cold intolerance, polyuria or polydipsia. EXTREMITIES: Denies muscle weakness, joint pain, pain on walking or stiffness. Physical Exam: Vital Signs: Vital Signs Date Time Temp Pulse Resp B/P (MAP) Pulse Ox O2 Delivery O2 Flow Rate FiO2 09/01/18 11:00 98.0 90 20 106/70 (82) 96 Nasal Cannula 2.0 98.0 Physcial Exam: GEN.: Extremely weak sitting up with his head slumped down speaks very softly HEENT: Has an abrasion on his face from following NECK: Supple, no JVD LUNGS: Slight crackles HEART: RRR, S1, S2 present. Peripheral pulses intact ABDOMEN: Slightly tender EXTREMITIES: Without any cyanosis, clubbing, or edema. Pedal pulses intact NEUROLOGIC: Extremely weak PSYCHIATRIC: Flat affect VASCULAR: Good capillary refill Labs: Labs: Laboratory Tests Test 09/01/18 00:43 09/01/18 00:50 09/01/18 01:00 09/01/18 01:15 White Blood Count 17.6 x10^3/uL (4.0-11.0) Red Blood Count 4.73 x10^6/uL (4.30-5.70) Hemoglobin 14.3 g/dL (13.0-17.5) Hematocrit 45.2 % (39.0-53.0) Mean Corpuscular Volume 96 fL (79-100) Mean Corpuscular Hemoglobin 30 pg (25-35) Mean Corpuscular Hemoglobin Concent 32 g/dL (31-37) Red Cell Distribution Width 17.4 % (11.5-14.5) Platelet Count 239 x10^3/uL (140-400) Neutrophils (%) (Auto) 89 % (31-73) Lymphocytes (%) (Auto) 5 % (24-48) Monocytes (%) (Auto) 6 % (0-9) Eosinophils (%) (Auto) 0 % (0-3) Basophils (%) (Auto) 0 % (0-3) Neutrophils # (Auto) 15.6 x10^3uL (1.8-7.7) Lymphocytes # (Auto) 0.9 x10^3/uL (1.0-4.8) Monocytes # (Auto) 1.0 x10^3/uL (0.0-1.1) Eosinophils # (Auto) 0.0 x10^3/uL (0.0-0.7) Basophils # (Auto) 0.0 x10^3/uL (0.0-0.2) Segmented Neutrophils % 92 % (35-66) Lymphocytes % 5 % (24-48) Monocytes % 3 % (0-10) Platelet Estimate Adequate (ADEQUATE) Anisocytosis Slight Sodium Level 140 mmol/L (136-145) Potassium Level 5.3 mmol/L (3.5-5.1) Chloride Level 99 mmol/L (98-107) Carbon Dioxide Level 28 mmol/L (21-32) Anion Gap 13 (6-14) Blood Urea Nitrogen 37 mg/dL (8-26) Creatinine 1.8 mg/dL (0.7-1.3) Estimated GFR (Cockcroft-Gault) 38.7 BUN/Creatinine Ratio 21 (6-20) Glucose Level 130 mg/dL (70-99) Calcium Level 9.0 mg/dL (8.5-10.1) Magnesium Level 2.9 mg/dL (1.8-2.4) Total Bilirubin 0.5 mg/dL (0.2-1.0) Aspartate Amino Transf (AST/SGOT) 572 U/L (15-37) Alanine Aminotransferase (ALT/SGPT) 75 U/L (16-63) Alkaline Phosphatase 103 U/L (46-116) Troponin I Quantitative 0.089 ng/mL (0.000-0.055) TL-Tub-C-Type Natriuretic Peptide 6612 pg/mL (0-124) Total Protein 7.8 g/dL (6.4-8.2) Albumin 4.2 g/dL (3.4-5.0) Albumin/Globulin Ratio 1.2 (1.0-1.7) Salicylates Level 2.8 mg/dL (2.8-20.0) Salicylate Last Dose Date Salicylate Last Dose Time Acetaminophen Level < 2 mcg/ml (10-30) Acetaminophen Last Dose Date Acetaminophen Last Dose Time Ethyl Alcohol Level < 10 mg/dL (0-10) O2 Saturation 89 % (92-99) Arterial Blood pH 7.30 (7.35-7.45) Arterial Blood pH (Temp corrected) 7.28 Arterial Blood pCO2 at Patient Temp 54 mmHg (35-46) Arterial Blood pCO2 (Temp correct) 57 mmHg Arterial Blood pO2 at Patient Temp 61 mmHg (65-108) Arterial Blood pO2 (Temp corrected) 67 mmHg Arterial Blood HCO3 26 mmol/L (21-28) Arterial Blood Base Excess -2 mmol/L (-3-3) FiO2 28 Lactic Acid Level 2.5 mmol/L (0.4-2.0) Creatine Kinase 80302 U/L (39-308) Test 09/01/18 02:15 09/01/18 04:15 09/01/18 08:15 Urine Collection Type U cath Urine Color Franca Urine Clarity Clear Urine pH 5.0 Urine Specific [place] 1.025 Urine Protein Negative mg/dL (NEG-TRACE) Urine Glucose (UA) Negative mg/dL (NEG) Urine Ketones (Stick) Negative mg/dL (NEG) Urine Blood Large (NEG) Urine Nitrite Negative (NEG) Urine Bilirubin Small (NEG) Urine Urobilinogen Dipstick 0.2 mg/dL (0.2 mg/dL) Urine Leukocyte Esterase Negative (NEG) Urine RBC 0 /HPF (0-2) Urine WBC Occ /HPF (0-4) Urine Squamous Epithelial Cells Occ /LPF Urine Amorphous Sediment Present /HPF Urine Bacteria 0 /HPF (0-FEW) Urine Hyaline Casts Moderate /HPF Urine Granular Casts Occasional /HPF Urine Mucus Marked /LPF Urine Opiates Screen Pos (NEG) Urine Methadone Screen Neg (NEG) Urine Barbiturates Neg (NEG) Urine Phencyclidine Screen Neg (NEG) Urine Amphetamine/Methamphetamine Neg (NEG) Urine Benzodiazepines Screen Pos (NEG) Urine Cocaine Screen Neg (NEG) Urine Cannabinoids Screen Neg (NEG) Urine Ethyl Alcohol Neg (NEG) Lactic Acid Level 0.9 mmol/L (0.4-2.0) Troponin I Quantitative 0.090 ng/mL (0.000-0.055) 0.067 ng/mL (0.000-0.055) Laboratory Tests Test 09/01/18 00:43 09/01/18 00:50 09/01/18 01:00 09/01/18 01:15 White Blood Count 17.6 x10^3/uL (4.0-11.0) Red Blood Count 4.73 x10^6/uL (4.30-5.70) Hemoglobin 14.3 g/dL (13.0-17.5) Hematocrit 45.2 % (39.0-53.0) Mean Corpuscular Volume 96 fL (79-100) Mean Corpuscular Hemoglobin 30 pg (25-35) Mean Corpuscular Hemoglobin Concent 32 g/dL (31-37) Red Cell Distribution Width 17.4 % (11.5-14.5) Platelet Count 239 x10^3/uL (140-400) Neutrophils (%) (Auto) 89 % (31-73) Lymphocytes (%) (Auto) 5 % (24-48) Monocytes (%) (Auto) 6 % (0-9) Eosinophils (%) (Auto) 0 % (0-3) Basophils (%) (Auto) 0 % (0-3) Neutrophils # (Auto) 15.6 x10^3uL (1.8-7.7) Lymphocytes # (Auto) 0.9 x10^3/uL (1.0-4.8) Monocytes # (Auto) 1.0 x10^3/uL (0.0-1.1) Eosinophils # (Auto) 0.0 x10^3/uL (0.0-0.7) Basophils # (Auto) 0.0 x10^3/uL (0.0-0.2) Segmented Neutrophils % 92 % (35-66) Lymphocytes % 5 % (24-48) Monocytes % 3 % (0-10) Platelet Estimate Adequate (ADEQUATE) Anisocytosis Slight Sodium Level 140 mmol/L (136-145) Potassium Level 5.3 mmol/L (3.5-5.1) Chloride Level 99 mmol/L (98-107) Carbon Dioxide Level 28 mmol/L (21-32) Anion Gap 13 (6-14) Blood Urea Nitrogen 37 mg/dL (8-26) Creatinine 1.8 mg/dL (0.7-1.3) Estimated GFR (Cockcroft-Gault) 38.7 BUN/Creatinine Ratio 21 (6-20) Glucose Level 130 mg/dL (70-99) Calcium Level 9.0 mg/dL (8.5-10.1) Magnesium Level 2.9 mg/dL (1.8-2.4) Total Bilirubin 0.5 mg/dL (0.2-1.0) Aspartate Amino Transf (AST/SGOT) 572 U/L (15-37) Alanine Aminotransferase (ALT/SGPT) 75 U/L (16-63) Alkaline Phosphatase 103 U/L (46-116) Troponin I Quantitative 0.089 ng/mL (0.000-0.055) KA-Mwe-L-Type Natriuretic Peptide 6612 pg/mL (0-124) Total Protein 7.8 g/dL (6.4-8.2) Albumin 4.2 g/dL (3.4-5.0) Albumin/Globulin Ratio 1.2 (1.0-1.7) Salicylates Level 2.8 mg/dL (2.8-20.0) Salicylate Last Dose Date Salicylate Last Dose Time Acetaminophen Level < 2 mcg/ml (10-30) Acetaminophen Last Dose Date Acetaminophen Last Dose Time Ethyl Alcohol Level < 10 mg/dL (0-10) O2 Saturation 89 % (92-99) Arterial Blood pH 7.30 (7.35-7.45) Arterial Blood pH (Temp corrected) 7.28 Arterial Blood pCO2 at Patient Temp 54 mmHg (35-46) Arterial Blood pCO2 (Temp correct) 57 mmHg Arterial Blood pO2 at Patient Temp 61 mmHg (65-108) Arterial Blood pO2 (Temp corrected) 67 mmHg Arterial Blood HCO3 26 mmol/L (21-28) Arterial Blood Base Excess -2 mmol/L (-3-3) FiO2 28 Lactic Acid Level 2.5 mmol/L (0.4-2.0) Creatine Kinase 92537 U/L (39-308) Test 09/01/18 02:15 09/01/18 04:15 09/01/18 08:15 Urine Collection Type U cath Urine Color Franca Urine Clarity Clear Urine pH 5.0 Urine Specific [place] 1.025 Urine Protein Negative mg/dL (NEG-TRACE) Urine Glucose (UA) Negative mg/dL (NEG) Urine Ketones (Stick) Negative mg/dL (NEG) Urine Blood Large (NEG) Urine Nitrite Negative (NEG) Urine Bilirubin Small (NEG) Urine Urobilinogen Dipstick 0.2 mg/dL (0.2 mg/dL) Urine Leukocyte Esterase Negative (NEG) Urine RBC 0 /HPF (0-2) Urine WBC Occ /HPF (0-4) Urine Squamous Epithelial Cells Occ /LPF Urine Amorphous Sediment Present /HPF Urine Bacteria 0 /HPF (0-FEW) Urine Hyaline Casts Moderate /HPF Urine Granular Casts Occasional /HPF Urine Mucus Marked /LPF Urine Opiates Screen Pos (NEG) Urine Methadone Screen Neg (NEG) Urine Barbiturates Neg (NEG) Urine Phencyclidine Screen Neg (NEG) Urine Amphetamine/Methamphetamine Neg (NEG) Urine Benzodiazepines Screen Pos (NEG) Urine Cocaine Screen Neg (NEG) Urine Cannabinoids Screen Neg (NEG) Urine Ethyl Alcohol Neg (NEG) Lactic Acid Level 0.9 mmol/L (0.4-2.0) Troponin I Quantitative 0.090 ng/mL (0.000-0.055) 0.067 ng/mL (0.000-0.055) Images: Images Findings: Portable upright frontal view of the chest was obtained. Dual lead right-sided ICD is present. Heart size normal. No pneumothorax. Pulmonary vasculature is within the upper limits of normal. No focal infiltrate or pleural effusion. No pneumothorax. Bony structures are grossly unremarkable. Impression: No focal infiltrate. Assessment/Plan Assessment/Plan Hypoxia in a middle-aged male who takes to narcotics suspect he could've had an element of toxicity? He did respond to Narcan initially with the ambulance crew Severe sepsis Leukocytosis Acute on chronic systolic and diastolic heart failure with elevated CPK and troponin and BNP Transaminase-itis Gallstones Plan ICU monitoring IV antibiotics Titrate O2 Consult pulmonary cardiology GI and general surgery Home meds but will back off on the narcotics a little DVT prophylaxis Full code Prognosis guarded Total time 32 minutes NAINA CRISOSTOMO III DO September 01, 2018 11:25
--- NOTE | 2018-09-01 12:42 | NUR ---
Patient is starting to wake up and is becoming restless/impulsive. Bed alarm on. at bedside. Education given on fall risk and need for his oxygen/monitors. Will continue to monitor.
--- NOTE | 2018-09-01 12:46 | PDOC2 ---
GI CONSULT Reason For Consult: Cholelithiasis HPI: HPI: 58 y/o male who is drowsy in ICU this afternoon but able to provide some history. Jeffy also present to supplement, though he asks her not to "answer his questions." Brought to ER via EMS last night w/ AMS, SOA particularly during the night ( says O2 sats at home in 60s), sweating, and recent falls - got Narcan prior to arrival. He denies GI symptoms including vomiting, reflux/heartburn, dysphagia, abd pain, diarrhea, constipation, hematochezia, and melena - does admit to fluctuating weight ("sometimes up, sometimes down"). suggests some recent nausea and decreased appetite. No previous EGD. Says he had a "colonoscopy lab" ( says Lew) recently that "was actually pretty good" - I do not believe he has had a colonoscopy. Denies GB, liver, pancreas, and PUD history. Takes ASA 81mg QD, morphine and hydrocodone PRN for chronic back pain, and it seems like occasional Tylenol and NSAIDs as well (unclear how often). PMH: PMH: A Fib, V tach, ?CHF, ?HLD, TIA, COPD, bronchitis, back pain, arthritis (?RA), PTSD AICD, back and neck surgeries, cardiac cath FH: Family History: CAD Social History: Smoke: 2 packs per day ALCOHOL: none Drugs: None ROS: GEN: +sweats HEENT: Denies blurred vision, sore throat CV: Denies chest pain RESP: +SOA GI: Per HPI : Denies hematuria, dysuria ENDO: +fluctuating weight NEURO: +confusion MSK: +chronic back pain SKIN: Denies jaundice, pruritus Vitals: Vitals: Vital Signs Date Time Temp Pulse Resp B/P (MAP) Pulse Ox O2 Delivery O2 Flow Rate FiO2 09/01/18 12:24 92 Nasal Cannula 3.0 09/01/18 12:00 98.2 85 16 109/66 (80) 98.2 Labs: Labs: Laboratory Tests Test 09/01/18 00:43 09/01/18 00:50 09/01/18 01:00 09/01/18 01:15 White Blood Count 17.6 x10^3/uL (4.0-11.0) Red Blood Count 4.73 x10^6/uL (4.30-5.70) Hemoglobin 14.3 g/dL (13.0-17.5) Hematocrit 45.2 % (39.0-53.0) Mean Corpuscular Volume 96 fL (79-100) Mean Corpuscular Hemoglobin 30 pg (25-35) Mean Corpuscular Hemoglobin Concent 32 g/dL (31-37) Red Cell Distribution Width 17.4 % (11.5-14.5) Platelet Count 239 x10^3/uL (140-400) Neutrophils (%) (Auto) 89 % (31-73) Lymphocytes (%) (Auto) 5 % (24-48) Monocytes (%) (Auto) 6 % (0-9) Eosinophils (%) (Auto) 0 % (0-3) Basophils (%) (Auto) 0 % (0-3) Neutrophils # (Auto) 15.6 x10^3uL (1.8-7.7) Lymphocytes # (Auto) 0.9 x10^3/uL (1.0-4.8) Monocytes # (Auto) 1.0 x10^3/uL (0.0-1.1) Eosinophils # (Auto) 0.0 x10^3/uL (0.0-0.7) Basophils # (Auto) 0.0 x10^3/uL (0.0-0.2) Segmented Neutrophils % 92 % (35-66) Lymphocytes % 5 % (24-48) Monocytes % 3 % (0-10) Platelet Estimate Adequate (ADEQUATE) Anisocytosis Slight Sodium Level 140 mmol/L (136-145) Potassium Level 5.3 mmol/L (3.5-5.1) Chloride Level 99 mmol/L (98-107) Carbon Dioxide Level 28 mmol/L (21-32) Anion Gap 13 (6-14) Blood Urea Nitrogen 37 mg/dL (8-26) Creatinine 1.8 mg/dL (0.7-1.3) Estimated GFR (Cockcroft-Gault) 38.7 BUN/Creatinine Ratio 21 (6-20) Glucose Level 130 mg/dL (70-99) Calcium Level 9.0 mg/dL (8.5-10.1) Magnesium Level 2.9 mg/dL (1.8-2.4) Total Bilirubin 0.5 mg/dL (0.2-1.0) Aspartate Amino Transf (AST/SGOT) 572 U/L (15-37) Alanine Aminotransferase (ALT/SGPT) 75 U/L (16-63) Alkaline Phosphatase 103 U/L (46-116) Troponin I Quantitative 0.089 ng/mL (0.000-0.055) IY-Yse-M-Type Natriuretic Peptide 6612 pg/mL (0-124) Total Protein 7.8 g/dL (6.4-8.2) Albumin 4.2 g/dL (3.4-5.0) Albumin/Globulin Ratio 1.2 (1.0-1.7) Salicylates Level 2.8 mg/dL (2.8-20.0) Salicylate Last Dose Date Salicylate Last Dose Time Acetaminophen Level < 2 mcg/ml (10-30) Acetaminophen Last Dose Date Acetaminophen Last Dose Time Ethyl Alcohol Level < 10 mg/dL (0-10) O2 Saturation 89 % (92-99) Arterial Blood pH 7.30 (7.35-7.45) Arterial Blood pH (Temp corrected) 7.28 Arterial Blood pCO2 at Patient Temp 54 mmHg (35-46) Arterial Blood pCO2 (Temp correct) 57 mmHg Arterial Blood pO2 at Patient Temp 61 mmHg (65-108) Arterial Blood pO2 (Temp corrected) 67 mmHg Arterial Blood HCO3 26 mmol/L (21-28) Arterial Blood Base Excess -2 mmol/L (-3-3) FiO2 28 Lactic Acid Level 2.5 mmol/L (0.4-2.0) Creatine Kinase 91454 U/L (39-308) Test 09/01/18 02:15 09/01/18 04:15 09/01/18 08:15 Urine Collection Type U cath Urine Color Franca Urine Clarity Clear Urine pH 5.0 Urine Specific [place] 1.025 Urine Protein Negative mg/dL (NEG-TRACE) Urine Glucose (UA) Negative mg/dL (NEG) Urine Ketones (Stick) Negative mg/dL (NEG) Urine Blood Large (NEG) Urine Nitrite Negative (NEG) Urine Bilirubin Small (NEG) Urine Urobilinogen Dipstick 0.2 mg/dL (0.2 mg/dL) Urine Leukocyte Esterase Negative (NEG) Urine RBC 0 /HPF (0-2) Urine WBC Occ /HPF (0-4) Urine Squamous Epithelial Cells Occ /LPF Urine Amorphous Sediment Present /HPF Urine Bacteria 0 /HPF (0-FEW) Urine Hyaline Casts Moderate /HPF Urine Granular Casts Occasional /HPF Urine Mucus Marked /LPF Urine Opiates Screen Pos (NEG) Urine Methadone Screen Neg (NEG) Urine Barbiturates Neg (NEG) Urine Phencyclidine Screen Neg (NEG) Urine Amphetamine/Methamphetamine Neg (NEG) Urine Benzodiazepines Screen Pos (NEG) Urine Cocaine Screen Neg (NEG) Urine Cannabinoids Screen Neg (NEG) Urine Ethyl Alcohol Neg (NEG) Lactic Acid Level 0.9 mmol/L (0.4-2.0) Troponin I Quantitative 0.090 ng/mL (0.000-0.055) 0.067 ng/mL (0.000-0.055) Allergies: Coded Allergies: bupropion (Verified Allergy, Intermediate, 04/17/16) Medications: Current Medications Medications (Trade) Dose Ordered Sig/Lolis Route PRN Reason Start Time Stop Time Status Last Admin Dose Admin Albuterol/ Ipratropium (Duoneb) 3 ml 1X ONCE NEB 09/01/18 01:00 09/01/18 01:01 DC 09/01/18 00:59 Methylprednisolone Sodium Succinate (SOLU-Medrol 125MG VIAL) 125 mg 1X ONCE IV 09/01/18 00:45 09/01/18 00:57 DC 09/01/18 00:53 Sodium Chloride 1,000 ml @ 1,000 mls/hr 1X ONCE IV 09/01/18 01:00 09/01/18 01:59 DC 09/01/18 00:54 Ceftriaxone Sodium (Rocephin) 1 gm 1X ONCE IVP 09/01/18 01:30 09/01/18 01:31 DC 09/01/18 01:54 Doxycycline Hyclate 100 mg/ Dextrose 100 ml @ 50 mls/hr 1X ONCE IV 09/01/18 02:30 09/01/18 04:29 DC 09/01/18 02:21 Albuterol/ Ipratropium (Duoneb) 3 ml RTQID NEB 09/01/18 08:00 09/02/18 07:59 09/01/18 12:23 Sodium Chloride 1,000 ml @ 1,000 mls/hr 1X ONCE IV 09/01/18 03:00 09/01/18 03:59 DC 09/01/18 03:04 Aspirin (Children'S Aspirin) 324 mg 1X ONCE PO 09/01/18 03:00 09/01/18 03:01 DC 09/01/18 03:04 Metronidazole 100 ml @ 100 mls/hr 1X ONCE IV 09/01/18 03:30 09/01/18 04:29 DC 09/01/18 05:07 Imaging: Imaging: Head/C-spine CT IMPRESSION: 1. No acute intracranial abnormality. 2. No acute fracture of the cervical spine. CXR Impression: No focal infiltrate. CT A/P IMPRESSION: 1. Urinary bladder is markedly distended. 2. Dilated small bowel loop in the left midabdomen. No evidence of obstruction. 3. Moderate colon stool volume. RUQ US IMPRESSION: Hydropic gallbladder. Cholelithiasis. PE: GEN: NAD HEENT: Atraumatic, PERRL LUNGS: NC 3 L, diminished anteriorly, poor effort HEART: RR ABD: NABS, S/ND/NT EXTREMITY: No edema SKIN: No rashes, no jaundice NEURO/PSYCH: A & O 3 - drowsy A/P: A/P: AMS, hypoxia (acute/chronic resp failure), diaphoresis, falls, ?nausea/anorexia Elevated AST, mildly elevated ALT - normal liver on imaging Cholelithiasis, hydropic GB - normal CBD on US (5mm) Leukocytosis, elevated troponin, elevated CK, lactic acidosis (resolved), SALONI/hyperkalemia CRC screen - reports unremarkable Cologuard testing recently Chronic back pain -- Surgery following re: cholelithiasis - no surgical plans. Unremarkable liver on US - would monitor LFTs, additional recs re: elevated AST and ALT per Dr. Emery. LUIS RODRIGUEZ September 01, 2018 12:46
--- NOTE | 2018-09-01 13:11 | PDOC2 ---
CARDIAC CONSULT DATE OF CONSULT Date of Consult DATE: 09/01/18 TIME: 12:57 REASON FOR CONSULT Reason for Consult: Cardiac history AFIB, VT, CHF REFERRING PHYSICIAN Referring Physician: Dr. Perry SOURCE Source: Chart review, Patient HISTORY OF PRESENT ILLNESS HISTORY OF PRESENT ILLNESS This is a 58 yo male, with a history of VT/Vfib arrest s/p AICD and NICM, who presented secondary to altered mental status and shortness of breath. reports confusion at home. Checked O2 saturation at home, was noted in the 60's. EMS was initially called, but patient refused transport. EMS was called back due to worsening SOA. Has chronic back pain on narcotic pain therapy. Was given Narcan by EMS, with some improvement in symptoms. also reports multiple falls in the last weeks, although patient denies this. Is presently drowsy and slightly confused. Not on home O2 and continues to smoke. Patient denies any chest pain, dizziness, diaphoresis, or nausea/vomiting. PAST MEDICAL HISTORY Cardiovascular: AFIB, CHF, Hyperlipidemia, Other (VT) Pulmonary: COPD CENTRAL NERVOUS SYSTEM: TIA GI: No pertinent hx Heme/Onc: No pertinent hx Psych: Other (PTSD) Musculoskeletal: low back pain Rheumatologic: Rheumatoid arthritis Infectious disease: No pertinent hx ENT: No pertinent hx Renal/: No pertinent hx Endocrine: No pertinent hx Dermatology: No pertinent hx PAST SURGICAL HISTORY Past Surgical History: Pacemaker (AICD), Other (neck surgery) CURRENT MEDICATIONS CURRENT MEDICATIONS Current Medications Medications (Trade) Dose Ordered Sig/Lolis Route PRN Reason Start Time Stop Time Status Last Admin Dose Admin Albuterol/ Ipratropium (Duoneb) 3 ml 1X ONCE NEB 09/01/18 01:00 09/01/18 01:01 DC 09/01/18 00:59 Methylprednisolone Sodium Succinate (SOLU-Medrol 125MG VIAL) 125 mg 1X ONCE IV 09/01/18 00:45 09/01/18 00:57 DC 09/01/18 00:53 Sodium Chloride 1,000 ml @ 1,000 mls/hr 1X ONCE IV 09/01/18 01:00 09/01/18 01:59 DC 09/01/18 00:54 Ceftriaxone Sodium (Rocephin) 1 gm 1X ONCE IVP 09/01/18 01:30 09/01/18 01:31 DC 09/01/18 01:54 Doxycycline Hyclate 100 mg/ Dextrose 100 ml @ 50 mls/hr 1X ONCE IV 09/01/18 02:30 09/01/18 04:29 DC 09/01/18 02:21 Albuterol/ Ipratropium (Duoneb) 3 ml RTQID NEB 09/01/18 08:00 09/02/18 07:59 09/01/18 12:23 Sodium Chloride 1,000 ml @ 1,000 mls/hr 1X ONCE IV 09/01/18 03:00 09/01/18 03:59 DC 09/01/18 03:04 Aspirin (Children'S Aspirin) 324 mg 1X ONCE PO 09/01/18 03:00 09/01/18 03:01 DC 09/01/18 03:04 Metronidazole 100 ml @ 100 mls/hr 1X ONCE IV 09/01/18 03:30 09/01/18 04:29 DC 09/01/18 05:07 ALLERGIES ALLERGIES: Coded Allergies: bupropion (Verified Allergy, Intermediate, 04/17/16) PHYSICAL EXAM General: Alert, Cooperative, No acute distress HEENT: Atraumatic, Mucous membr. moist/pink Lungs: Clear to auscultation, Other (diminished bases) Heart: Regular rate Abdomen: Soft, No tenderness Extremities: No edema, Normal pulses Skin: No significant lesion Neuro: Sensation intact Psych/Mental Status: Other (confused) MUSCULOSKELETAL: Osteoarthritic changes both hands VITALS VITALS Vital Signs Date Time Temp Pulse Resp B/P (MAP) Pulse Ox O2 Delivery O2 Flow Rate FiO2 09/01/18 12:55 98.4 83 22 97/65 (76) 96 Nasal Cannula 2.0 98.4 LABS Lab: Laboratory Tests Test 09/01/18 00:43 09/01/18 00:50 09/01/18 01:00 09/01/18 01:15 White Blood Count 17.6 x10^3/uL (4.0-11.0) Red Blood Count 4.73 x10^6/uL (4.30-5.70) Hemoglobin 14.3 g/dL (13.0-17.5) Hematocrit 45.2 % (39.0-53.0) Mean Corpuscular Volume 96 fL (79-100) Mean Corpuscular Hemoglobin 30 pg (25-35) Mean Corpuscular Hemoglobin Concent 32 g/dL (31-37) Red Cell Distribution Width 17.4 % (11.5-14.5) Platelet Count 239 x10^3/uL (140-400) Neutrophils (%) (Auto) 89 % (31-73) Lymphocytes (%) (Auto) 5 % (24-48) Monocytes (%) (Auto) 6 % (0-9) Eosinophils (%) (Auto) 0 % (0-3) Basophils (%) (Auto) 0 % (0-3) Neutrophils # (Auto) 15.6 x10^3uL (1.8-7.7) Lymphocytes # (Auto) 0.9 x10^3/uL (1.0-4.8) Monocytes # (Auto) 1.0 x10^3/uL (0.0-1.1) Eosinophils # (Auto) 0.0 x10^3/uL (0.0-0.7) Basophils # (Auto) 0.0 x10^3/uL (0.0-0.2) Segmented Neutrophils % 92 % (35-66) Lymphocytes % 5 % (24-48) Monocytes % 3 % (0-10) Platelet Estimate Adequate (ADEQUATE) Anisocytosis Slight Sodium Level 140 mmol/L (136-145) Potassium Level 5.3 mmol/L (3.5-5.1) Chloride Level 99 mmol/L (98-107) Carbon Dioxide Level 28 mmol/L (21-32) Anion Gap 13 (6-14) Blood Urea Nitrogen 37 mg/dL (8-26) Creatinine 1.8 mg/dL (0.7-1.3) Estimated GFR (Cockcroft-Gault) 38.7 BUN/Creatinine Ratio 21 (6-20) Glucose Level 130 mg/dL (70-99) Calcium Level 9.0 mg/dL (8.5-10.1) Magnesium Level 2.9 mg/dL (1.8-2.4) Total Bilirubin 0.5 mg/dL (0.2-1.0) Aspartate Amino Transf (AST/SGOT) 572 U/L (15-37) Alanine Aminotransferase (ALT/SGPT) 75 U/L (16-63) Alkaline Phosphatase 103 U/L (46-116) Troponin I Quantitative 0.089 ng/mL (0.000-0.055) US-Fev-H-Type Natriuretic Peptide 6612 pg/mL (0-124) Total Protein 7.8 g/dL (6.4-8.2) Albumin 4.2 g/dL (3.4-5.0) Albumin/Globulin Ratio 1.2 (1.0-1.7) Salicylates Level 2.8 mg/dL (2.8-20.0) Salicylate Last Dose Date Salicylate Last Dose Time Acetaminophen Level < 2 mcg/ml (10-30) Acetaminophen Last Dose Date Acetaminophen Last Dose Time Ethyl Alcohol Level < 10 mg/dL (0-10) O2 Saturation 89 % (92-99) Arterial Blood pH 7.30 (7.35-7.45) Arterial Blood pH (Temp corrected) 7.28 Arterial Blood pCO2 at Patient Temp 54 mmHg (35-46) Arterial Blood pCO2 (Temp correct) 57 mmHg Arterial Blood pO2 at Patient Temp 61 mmHg (65-108) Arterial Blood pO2 (Temp corrected) 67 mmHg Arterial Blood HCO3 26 mmol/L (21-28) Arterial Blood Base Excess -2 mmol/L (-3-3) FiO2 28 Lactic Acid Level 2.5 mmol/L (0.4-2.0) Creatine Kinase 95663 U/L (39-308) Test 09/01/18 02:15 09/01/18 04:15 09/01/18 08:15 Urine Collection Type U cath Urine Color Franca Urine Clarity Clear Urine pH 5.0 Urine Specific [place] 1.025 Urine Protein Negative mg/dL (NEG-TRACE) Urine Glucose (UA) Negative mg/dL (NEG) Urine Ketones (Stick) Negative mg/dL (NEG) Urine Blood Large (NEG) Urine Nitrite Negative (NEG) Urine Bilirubin Small (NEG) Urine Urobilinogen Dipstick 0.2 mg/dL (0.2 mg/dL) Urine Leukocyte Esterase Negative (NEG) Urine RBC 0 /HPF (0-2) Urine WBC Occ /HPF (0-4) Urine Squamous Epithelial Cells Occ /LPF Urine Amorphous Sediment Present /HPF Urine Bacteria 0 /HPF (0-FEW) Urine Hyaline Casts Moderate /HPF Urine Granular Casts Occasional /HPF Urine Mucus Marked /LPF Urine Opiates Screen Pos (NEG) Urine Methadone Screen Neg (NEG) Urine Barbiturates Neg (NEG) Urine Phencyclidine Screen Neg (NEG) Urine Amphetamine/Methamphetamine Neg (NEG) Urine Benzodiazepines Screen Pos (NEG) Urine Cocaine Screen Neg (NEG) Urine Cannabinoids Screen Neg (NEG) Urine Ethyl Alcohol Neg (NEG) Lactic Acid Level 0.9 mmol/L (0.4-2.0) Troponin I Quantitative 0.090 ng/mL (0.000-0.055) 0.067 ng/mL (0.000-0.055) ECHOCARDIOGRAM ECHOCARDIOGRAM <Conclusion> The left ventricle is normal size. Left ventricle systolic function is normal. The Ejection Fraction is 50-55%. There is borderline concentric left ventricular hypertrophy. A device lead is seen in the right atrium consistent with history. There is no significant aortic valvular stenosis. Doppler and Color Flow revealed no significant aortic regurgitation. Doppler and Color-flow revealed trace mitral regurgitation. Doppler and Color Flow revealed mild tricuspid regurgitation. DATE: 06/24/17 1223 ASSESSMENT/PLAN ASSESSMENT/PLAN 1. Acute on chronic respiratory failure with ongoing tobaccoism 2. Metabolic encephalopathy 3. Chronic pain; narcotic dependent 4. Mild troponin elevation. Peak 0.09. Most probably type II, demand ischemia in setting of respiratory failure/hypoxemia and SALONI. CP free. 5. SALONI 6. Hyperkalemia 7. Leukocytosis, lactic acidosis. 8. Cholelithiasis; no surgical plans 9. Elevated LFTs; GI following 10. Chronic diastolic CHF; clinically compensated 11. PAFIB: maintaining SR. EF 50-55% with normal WM. 12. AICD (Biotroik). Placed due to past VTs. 13. Hyperlipidemia Recommendations Biotronik to interrogate device Echo to assess LV systolic function Hold ACEi with SALONI Poor candidate for amiodarone due to pulmonary issue. Continue with cardizem CD for rate control when able to take PO. Metoprolol IV PRN in the meantime Poor candidate for anticoagulation given his noncompliance with known failed appointments. ASA for stroke prevention Continue with secondary prevention. supportive care Smoking cessation. Reinforce compliance once mentation is better. SCOTTIE TAYLOR APRN September 01, 2018 13:11
--- NOTE | 2018-09-01 13:21 | PDOC ---
PULMONARY PROGRESS NOTES Vitals Vital Signs Date Time Temp Pulse Resp B/P (MAP) Pulse Ox O2 Delivery O2 Flow Rate FiO2 09/01/18 12:55 98.4 83 22 97/65 (76) 96 Nasal Cannula 2.0 98.4 General: Alert, No acute distress Lungs: Clear Cardiovascular: S1, Other Abdomen: Soft Extremities: No Edema Labs Laboratory Tests Test 09/01/18 00:43 09/01/18 00:50 09/01/18 01:00 09/01/18 01:15 White Blood Count 17.6 x10^3/uL (4.0-11.0) Red Blood Count 4.73 x10^6/uL (4.30-5.70) Hemoglobin 14.3 g/dL (13.0-17.5) Hematocrit 45.2 % (39.0-53.0) Mean Corpuscular Volume 96 fL (79-100) Mean Corpuscular Hemoglobin 30 pg (25-35) Mean Corpuscular Hemoglobin Concent 32 g/dL (31-37) Red Cell Distribution Width 17.4 % (11.5-14.5) Platelet Count 239 x10^3/uL (140-400) Neutrophils (%) (Auto) 89 % (31-73) Lymphocytes (%) (Auto) 5 % (24-48) Monocytes (%) (Auto) 6 % (0-9) Eosinophils (%) (Auto) 0 % (0-3) Basophils (%) (Auto) 0 % (0-3) Neutrophils # (Auto) 15.6 x10^3uL (1.8-7.7) Lymphocytes # (Auto) 0.9 x10^3/uL (1.0-4.8) Monocytes # (Auto) 1.0 x10^3/uL (0.0-1.1) Eosinophils # (Auto) 0.0 x10^3/uL (0.0-0.7) Basophils # (Auto) 0.0 x10^3/uL (0.0-0.2) Segmented Neutrophils % 92 % (35-66) Lymphocytes % 5 % (24-48) Monocytes % 3 % (0-10) Platelet Estimate Adequate (ADEQUATE) Anisocytosis Slight Sodium Level 140 mmol/L (136-145) Potassium Level 5.3 mmol/L (3.5-5.1) Chloride Level 99 mmol/L (98-107) Carbon Dioxide Level 28 mmol/L (21-32) Anion Gap 13 (6-14) Blood Urea Nitrogen 37 mg/dL (8-26) Creatinine 1.8 mg/dL (0.7-1.3) Estimated GFR (Cockcroft-Gault) 38.7 BUN/Creatinine Ratio 21 (6-20) Glucose Level 130 mg/dL (70-99) Calcium Level 9.0 mg/dL (8.5-10.1) Magnesium Level 2.9 mg/dL (1.8-2.4) Total Bilirubin 0.5 mg/dL (0.2-1.0) Aspartate Amino Transf (AST/SGOT) 572 U/L (15-37) Alanine Aminotransferase (ALT/SGPT) 75 U/L (16-63) Alkaline Phosphatase 103 U/L (46-116) Troponin I Quantitative 0.089 ng/mL (0.000-0.055) IV-Ruk-X-Type Natriuretic Peptide 6612 pg/mL (0-124) Total Protein 7.8 g/dL (6.4-8.2) Albumin 4.2 g/dL (3.4-5.0) Albumin/Globulin Ratio 1.2 (1.0-1.7) Salicylates Level 2.8 mg/dL (2.8-20.0) Salicylate Last Dose Date Salicylate Last Dose Time Acetaminophen Level < 2 mcg/ml (10-30) Acetaminophen Last Dose Date Acetaminophen Last Dose Time Ethyl Alcohol Level < 10 mg/dL (0-10) O2 Saturation 89 % (92-99) Arterial Blood pH 7.30 (7.35-7.45) Arterial Blood pH (Temp corrected) 7.28 Arterial Blood pCO2 at Patient Temp 54 mmHg (35-46) Arterial Blood pCO2 (Temp correct) 57 mmHg Arterial Blood pO2 at Patient Temp 61 mmHg (65-108) Arterial Blood pO2 (Temp corrected) 67 mmHg Arterial Blood HCO3 26 mmol/L (21-28) Arterial Blood Base Excess -2 mmol/L (-3-3) FiO2 28 Lactic Acid Level 2.5 mmol/L (0.4-2.0) Creatine Kinase 56469 U/L (39-308) Test 09/01/18 02:15 09/01/18 04:15 09/01/18 08:15 Urine Collection Type U cath Urine Color Franca Urine Clarity Clear Urine pH 5.0 Urine Specific [place] 1.025 Urine Protein Negative mg/dL (NEG-TRACE) Urine Glucose (UA) Negative mg/dL (NEG) Urine Ketones (Stick) Negative mg/dL (NEG) Urine Blood Large (NEG) Urine Nitrite Negative (NEG) Urine Bilirubin Small (NEG) Urine Urobilinogen Dipstick 0.2 mg/dL (0.2 mg/dL) Urine Leukocyte Esterase Negative (NEG) Urine RBC 0 /HPF (0-2) Urine WBC Occ /HPF (0-4) Urine Squamous Epithelial Cells Occ /LPF Urine Amorphous Sediment Present /HPF Urine Bacteria 0 /HPF (0-FEW) Urine Hyaline Casts Moderate /HPF Urine Granular Casts Occasional /HPF Urine Mucus Marked /LPF Urine Opiates Screen Pos (NEG) Urine Methadone Screen Neg (NEG) Urine Barbiturates Neg (NEG) Urine Phencyclidine Screen Neg (NEG) Urine Amphetamine/Methamphetamine Neg (NEG) Urine Benzodiazepines Screen Pos (NEG) Urine Cocaine Screen Neg (NEG) Urine Cannabinoids Screen Neg (NEG) Urine Ethyl Alcohol Neg (NEG) Lactic Acid Level 0.9 mmol/L (0.4-2.0) Troponin I Quantitative 0.090 ng/mL (0.000-0.055) 0.067 ng/mL (0.000-0.055) Laboratory Tests Test 09/01/18 00:43 09/01/18 00:50 09/01/18 01:00 09/01/18 01:15 White Blood Count 17.6 x10^3/uL (4.0-11.0) Red Blood Count 4.73 x10^6/uL (4.30-5.70) Hemoglobin 14.3 g/dL (13.0-17.5) Hematocrit 45.2 % (39.0-53.0) Mean Corpuscular Volume 96 fL (79-100) Mean Corpuscular Hemoglobin 30 pg (25-35) Mean Corpuscular Hemoglobin Concent 32 g/dL (31-37) Red Cell Distribution Width 17.4 % (11.5-14.5) Platelet Count 239 x10^3/uL (140-400) Neutrophils (%) (Auto) 89 % (31-73) Lymphocytes (%) (Auto) 5 % (24-48) Monocytes (%) (Auto) 6 % (0-9) Eosinophils (%) (Auto) 0 % (0-3) Basophils (%) (Auto) 0 % (0-3) Neutrophils # (Auto) 15.6 x10^3uL (1.8-7.7) Lymphocytes # (Auto) 0.9 x10^3/uL (1.0-4.8) Monocytes # (Auto) 1.0 x10^3/uL (0.0-1.1) Eosinophils # (Auto) 0.0 x10^3/uL (0.0-0.7) Basophils # (Auto) 0.0 x10^3/uL (0.0-0.2) Segmented Neutrophils % 92 % (35-66) Lymphocytes % 5 % (24-48) Monocytes % 3 % (0-10) Platelet Estimate Adequate (ADEQUATE) Anisocytosis Slight Sodium Level 140 mmol/L (136-145) Potassium Level 5.3 mmol/L (3.5-5.1) Chloride Level 99 mmol/L (98-107) Carbon Dioxide Level 28 mmol/L (21-32) Anion Gap 13 (6-14) Blood Urea Nitrogen 37 mg/dL (8-26) Creatinine 1.8 mg/dL (0.7-1.3) Estimated GFR (Cockcroft-Gault) 38.7 BUN/Creatinine Ratio 21 (6-20) Glucose Level 130 mg/dL (70-99) Calcium Level 9.0 mg/dL (8.5-10.1) Magnesium Level 2.9 mg/dL (1.8-2.4) Total Bilirubin 0.5 mg/dL (0.2-1.0) Aspartate Amino Transf (AST/SGOT) 572 U/L (15-37) Alanine Aminotransferase (ALT/SGPT) 75 U/L (16-63) Alkaline Phosphatase 103 U/L (46-116) Troponin I Quantitative 0.089 ng/mL (0.000-0.055) AJ-Qdj-L-Type Natriuretic Peptide 6612 pg/mL (0-124) Total Protein 7.8 g/dL (6.4-8.2) Albumin 4.2 g/dL (3.4-5.0) Albumin/Globulin Ratio 1.2 (1.0-1.7) Salicylates Level 2.8 mg/dL (2.8-20.0) Salicylate Last Dose Date Salicylate Last Dose Time Acetaminophen Level < 2 mcg/ml (10-30) Acetaminophen Last Dose Date Acetaminophen Last Dose Time Ethyl Alcohol Level < 10 mg/dL (0-10) O2 Saturation 89 % (92-99) Arterial Blood pH 7.30 (7.35-7.45) Arterial Blood pH (Temp corrected) 7.28 Arterial Blood pCO2 at Patient Temp 54 mmHg (35-46) Arterial Blood pCO2 (Temp correct) 57 mmHg Arterial Blood pO2 at Patient Temp 61 mmHg (65-108) Arterial Blood pO2 (Temp corrected) 67 mmHg Arterial Blood HCO3 26 mmol/L (21-28) Arterial Blood Base Excess -2 mmol/L (-3-3) FiO2 28 Lactic Acid Level 2.5 mmol/L (0.4-2.0) Creatine Kinase 25387 U/L (39-308) Test 09/01/18 02:15 09/01/18 04:15 09/01/18 08:15 Urine Collection Type U cath Urine Color Franca Urine Clarity Clear Urine pH 5.0 Urine Specific [place] 1.025 Urine Protein Negative mg/dL (NEG-TRACE) Urine Glucose (UA) Negative mg/dL (NEG) Urine Ketones (Stick) Negative mg/dL (NEG) Urine Blood Large (NEG) Urine Nitrite Negative (NEG) Urine Bilirubin Small (NEG) Urine Urobilinogen Dipstick 0.2 mg/dL (0.2 mg/dL) Urine Leukocyte Esterase Negative (NEG) Urine RBC 0 /HPF (0-2) Urine WBC Occ /HPF (0-4) Urine Squamous Epithelial Cells Occ /LPF Urine Amorphous Sediment Present /HPF Urine Bacteria 0 /HPF (0-FEW) Urine Hyaline Casts Moderate /HPF Urine Granular Casts Occasional /HPF Urine Mucus Marked /LPF Urine Opiates Screen Pos (NEG) Urine Methadone Screen Neg (NEG) Urine Barbiturates Neg (NEG) Urine Phencyclidine Screen Neg (NEG) Urine Amphetamine/Methamphetamine Neg (NEG) Urine Benzodiazepines Screen Pos (NEG) Urine Cocaine Screen Neg (NEG) Urine Cannabinoids Screen Neg (NEG) Urine Ethyl Alcohol Neg (NEG) Lactic Acid Level 0.9 mmol/L (0.4-2.0) Troponin I Quantitative 0.090 ng/mL (0.000-0.055) 0.067 ng/mL (0.000-0.055) Medications Active Scripts Medications Dose Route/Sig Max Daily Dose Days Date Category Crestor (Rosuvastatin Calcium) 20 Mg Tablet 1 Tab PO DAILY 09/01/18 Reported Valium (Diazepam) 10 Mg Tablet 10 Mg PO TID 09/01/18 Reported Prednisone (Prednisone) 10 Mg Tablet 30 Mg PO DAILY 06/28/17 Rx Lisinopril 20 Mg Tablet 20 Mg PO DAILY 30 06/28/17 Rx Diltiazem 24HR Cd (Diltiazem Hcl) 120 Mg Cap.er.24h 120 Mg PO DAILY 30 06/28/17 Rx Famotidine 20 Mg Tablet 20 Mg PO QHS 14 06/28/17 Rx Benzonatate 100 Mg Capsule 100 Mg PO [id number] 06/28/17 Rx Amox Tr-K Clv 500-125 Mg Tab (Amoxicillin/Potassium Clav) 1 Each Tablet 1 Tab PO BID 3 06/28/17 Rx Hydrocodone-Apap 10-325 (Hydrocodone Bit/Acetaminophen) 1 Each Tablet 1 Tab PO PRN Q8HRS 06/23/17 Reported Ms Contin (Morphine Sulfate) 30 Mg Tablet.er 1 Tab PO BID 06/23/17 Reported Aspir 81 (Aspirin) 81 Mg Tablet.dr 81 Mg PO DAILY 06/23/17 Reported Impression . FULL NOTE DICTATED HYPERCAPNIA RESP FAILURE SEE ORDERS MAIN PROBLEM IS EXCESSIVE USE OF NARCOTICS MAYUR LUQUE MD September 01, 2018 13:21
[2018-09-01] MEDS: diazePAM 5 MG TABLET PO SCH ×2 (14:17→21:00)
--- NOTE | 2018-09-01 15:20 | CARD ---
MR#: [id number] Date of Study: 09/01/2018 Ordering Physician: SCOTTIE TAYLOR, Referring Physician: NAINA CRISOSTOMO Tech: Stephanie Le, ARIADNA APPROVED REPORT EXAM: Two-dimensional and M-mode echocardiogram with Doppler and color Doppler. Other Information Quality : AverageHR: 80bpm Rhythm : PacemakerTechnically limited study due to COPD INDICATION Elevated troponin 2D DIMENSIONS RVDd3.0 (2.9-3.5cm)Left Atrium(2D)3.4 (1.6-4.0cm) IVSd1.4 (0.7-1.1cm)Aortic Root(2D)3.5 (2.0-3.7cm) LVDd5.3 (3.9-5.9cm)LVOT Diameter2.1 (1.8-2.4cm) PWd1.2 (0.7-1.1cm)LVDs3.6 (2.5-4.0cm) FS (%) 31.1 %SV78.8 ml LVEF(%)58.4 (>50%) M-Mode DIMENSIONS Left Atrium(MM)2.98 (2.5-4.0cm)Aortic Root3.14 (2.2-3.7cm) Aortic Valve AoV Peak Migel.118.2cm/sAoV VTI15.9cm AO Peak GR.5.6mmHgLVOT VTI 14.76cm AO Mean GR.3mmHg Mitral Valve MV E Apmgzikt02.6cm/sMV DECEL [id number] MV A Wolsjiqi02.6cm/sE/A Ratio0.9 MV A Qllqoitd64djVMC Planimetry3.00cm2 TDI Lateral E' P. V8.82cm/sMedial E' P. V8.30cm/s E/Lateral E'6.8E/Medial E'7.2 Tricuspid Valve TR P. Mnnwyupc633qt/sRAP [id number] TR Peak Gr.47sdYbMIPF18xyLg LEFT VENTRICLE The left ventricle is normal size. There is mild concentric left ventricular hypertrophy. The left ve ntricular systolic function is normal and the ejection fraction is within normal range. The Ejection Fraction is 55%. There is normal LV segmental wall motion. Transmitral Doppler flow pattern is Grade I-abnormal relaxation pattern. RIGHT VENTRICLE The right ventricle is normal size. There is normal right ventricular wall thickness. The right ventr icular systolic function is normal. Pacer lead noted in RV/RA. ATRIA The left atrium size is normal. The right atrium size is normal. The interatrial septum is intact wit h no evidence for an atrial septal defect or patent foramen ovale as noted on 2-D or Doppler imaging. AORTIC VALVE The aortic valve is normal in structure and function. The aortic valve is trileaflet. Doppler and Col or Flow revealed no significant aortic regurgitation. There is no significant aortic valvular stenosi s. MITRAL VALVE The mitral valve is normal in structure and function. There is no evidence of mitral valve prolapse. There is no mitral valve stenosis. Doppler and Color Flow revealed no mitral valve regurgitation note d. TRICUSPID VALVE The tricuspid valve is normal in structure and function. Doppler and Color Flow revealed trace tricus pid regurgitation. The PA pressure was estimated at 34 mmHg. There is no tricuspid valve prolapse or vegetation. There is no tricuspid valve stenosis. PULMONIC VALVE The pulmonic valve is not well visualized. GREAT VESSELS The aortic root is normal in size. The ascending aorta is normal in size. The IVC is dilated and gilda apses >50% with inspiration. PERICARDIAL EFFUSION There is no evidence of significant pericardial effusion. Critical Notification Critical Value: No <Conclusion> The left ventricular systolic function is normal and the ejection fraction is within normal range. Th e Ejection Fraction is 55%. There is mild concentric left ventricular hypertrophy. Pacer lead noted in RV/RA. Technically difficult study Signed by : Alvaro Soto, Electronically Approved : 09/01/2018 15:20:19
[2018-09-01] MEDS ORDERED: METOPROLOL TARTRATE 5 MG/5 ML VIAL. IVP PRN (17:15)
--- NOTE | 2018-09-01 19:41 | NUR ---
Patient Refused to stay any longer here for care, he stated that his is more sick then he is and needs to be care for, He said that he is not in assisted and can not be held against his will, spoke with Dr. Azul building construction engineer for Dr. Perry who is aware of Patient not wanting to stay, Patient has been advised by three different RN Nurses, (Tahira, Gaby, Dorina) to stay for care, Patient refused all three times, both IV access removes, Khan catheter removed, Against Medical formed has been explain and signed, Food Safety Specialist, Anne RN notified, Security notified, Patient's Kaleigh Sheehan went to get his clothes from home.
[2018-09-01] MEDS ORDERED: ATORVASTATIN CALCIUM 40 MG TABLET. PO SCH (21:00)
[2018-09-01] MEDS ORDERED: FAMOTIDINE 20 MG TABLET. PO SCH (21:00)
--- NOTE | 2018-09-01 21:55 | NUR ---
Patient's went home and never did return to facility with his clothes, Patient is still here in room refusing all medications and all care.
--- NOTE | 2018-09-02 00:16 | NUR ---
Patient in room, restless, confused, stripping gown off and on in room refuses care, able to get some assessment down, refused most assessments, only able to get some assessments here and there done.
--- NOTE | 2018-09-02 00:39 | CONS ---
DATE OF CONSULTATION: 09/01/2018 ATTENDING PHYSICIAN: Guzman Perry DO. REASON FOR CONSULTATION: The patient is seen in Pulmonary consultation at the request of Dr. Perry for hypoxemia, COPD. HISTORY OF PRESENT ILLNESS: The patient is a 58-year-old that has chronic pain. He does take narcotics at home. EMS was summoned to the house for hypoxemia. He has been more short of breath over the last several days, coughing up some mucus and some wheeze. He was given Narcan on the field and his respiratory rate increased. By the time he got to the Emergency Room, his pH was 7.30, paCO2 of 54 and pO2 of 61. The patient was placed on BiPAP. He is currently off of BiPAP, on nasal cannula. He is awake, but very sleepy. He is slurring his speech. His was at the bedside and appeared to be under the influence of narcotics also. She states that the patient has periods of dropping his saturations and respiratory rate at home. She was not sure who controlled the patient's narcotic use or who was the prescriber. PAST MEDICAL HISTORY: The patient was recently hospitalized here at [facility] back in June with mbzof-uq-pksycbf hypercapnic hypoxemic respiratory failure. At that time, it was felt to be related to CHF exacerbation, COPD and possibly pneumonia. He had an arterial blood gas back then revealing a pH of 7.29 with a paCO2 of 64. Chronic obstructive pulmonary disease, AFib, tobacco dependent, hypertension, pacemaker implantation, osteoarthritis and chronic narcotic use. PAST SURGICAL HISTORY: Status post pacemaker implantation. FAMILY HISTORY: Dyslipidemia and hypertension. SOCIAL HISTORY: Socially, he smokes up to 3 packs of cigarettes a day. REVIEW OF SYSTEMS: CONSTITUTIONAL: No fever or chills. EYES: No change in visual acuity. HENT: No nasal congestion or sore throat. PULMONARY: As indicated above. CARDIOVASCULAR: No chest pain or pressure. GASTROINTESTINAL: No nausea, vomiting or diarrhea. GENITOURINARY: No dysuria or frequency. MUSCULOSKELETAL: No localized muscle aches or joint pains. SKIN: No new skin rashes. NEUROLOGIC: No headaches, diplopia or blurred vision. MEDICATIONS: His medication list was reviewed. Specifically, home medications, he was on diltiazem, lisinopril, aspirin, hydrocodone, MS Contin 30 mg 1 p.o. b.i.d., Valium 10 mg t.i.d. and prednisone. PHYSICAL EXAMINATION: GENERAL: On examination, the patient was very lethargic, appeared to be under the influence of narcotics. HEENT: Eyes, the sclerae were nonicteric. NECK: Jugular venous distention was not elevated. No lymphadenopathy. CHEST: Full expansion. LUNGS: Adequate airway flow. No wheezes. CARDIOVASCULAR EXAMINATION: Regular rate and rhythm with S1, S2. No S3. ABDOMEN: Soft, nontender and nondistended. EXTREMITIES: No clubbing, cyanosis or edema. NEUROLOGIC: The patient was awake, alert, following commands. A detailed neuro exam was not performed. LABORATORY DATA: Labs were reviewed. Toxicology screen was positive for benzodiazepines and opiates. White count was 17,000. Arterial blood gas as indicated above. U/A was noted. Troponin level was elevated. BUN was elevated, creatinine was elevated. AST was elevated. Chest x-ray, no acute pulmonary process. CT abdomen and pelvis revealed no small-bowel obstruction. IMPRESSION: 1. Fodkq-en-tpkrhpe hypercapnic hypoxemic respiratory failure, multifactorial. 2. Acute exacerbation of chronic obstructive pulmonary disease. 3. Narcotic abuse leading to compromised respiratory status. 4. Tobacco dependence. 5. History of post-traumatic stress disorder. 6. Elevated troponin level. 7. Elevated AST. 8. Cholelithiasis. 9. Positive urine drug screen. 10. Acute kidney injury. PLAN: 1. The patient was initially on BiPAP. He is currently doing well off of BiPAP. Continue nasal cannula oxygen. 2. Steroids and breathing treatments. 3. The patient and instructed on the importance of finding a balance between narcotic use and overuse; they should follow up with a PCP. 4. We will decrease Valium to 5 t.i.d. This is certainly a contributing factor in the patient's clinical status and clinical presentation. 5. Discontinue tobacco use. 6. Follow Cardiology input. 7. Hydrate with normal saline. 8. Follow GI input. Complex decision making, total cumulative critical care of 40 minutes. Once again, I stressed the importance of followup with the pain physician. I also stressed the importance of avoiding taking excessive amounts of narcotics or Valium. The patient and have been informed that he can certainly have a poor outcome, i.e., sudden cardiopulmonary arrest, leading to . MAYUR LUQUE MD DR: Mendoza JOB#: [id number] / [id number]
--- NOTE | 2018-09-02 01:23 | NUR ---
Patient continues to be restless, confused calling out, unstable up and down trying to fall, multiple staff has been in room attempting to calm him down, offering food and toileting him food.
--- NOTE | 2018-09-02 05:47 | NUR ---
continues to be argumentative with nurses at desk walking into nurses station half dress, security called to unit and escorted back into room.
--- NOTE | 2018-09-02 07:28 | NUR ---
Received report and assumed care from Tahira CHRISTY this morning. Introduced self to pt, brought soda. Pt refused vitals, assessment and medications stating, "This is not a halfway, I'm leaving as soon as I get a hold of someone." Pt alert and oriented x4, ambulatory in room. Partially dressed in pants and blanket, disheveled. Paranoid delusions, "they are laughing at me, they are blocking my calls." Pt skin pink, respirations non-labored appears in no acute distress at this time. Will continue to monitor and offer care.
--- NOTE | 2018-09-02 07:52 | PDOC ---
VERENICE SARMIENTO [employer] 09/02/18 0752: SURGICAL PROGRESS NOTE Subjective up in chair tells me he is being held hostage, he is not being allowed to smoke otherwise does not answer questions Vital Signs Vital Signs Date Time Temp Pulse Resp B/P (MAP) Pulse Ox O2 Delivery O2 Flow Rate FiO2 09/02/18 06:00 22 Room Air 09/02/18 00:12 97.0 97.0 09/01/18 20:12 70 09/01/18 19:00 91 09/01/18 18:00 2.0 I&O Intake and Output 09/02/18 07:00 Intake Total 3750 ml Output Total 610 ml Balance 3140 ml Intake Oral 3600 ml Other 150 ml Output Urine Total 610 ml # Voids 6 General: Alert, Other (upset today ) Abdomen: Soft, Other (appears nontender ) Labs Laboratory Tests Test 09/01/18 00:43 09/01/18 00:50 09/01/18 01:00 09/01/18 01:15 White Blood Count 17.6 x10^3/uL (4.0-11.0) Red Blood Count 4.73 x10^6/uL (4.30-5.70) Hemoglobin 14.3 g/dL (13.0-17.5) Hematocrit 45.2 % (39.0-53.0) Mean Corpuscular Volume 96 fL (79-100) Mean Corpuscular Hemoglobin 30 pg (25-35) Mean Corpuscular Hemoglobin Concent 32 g/dL (31-37) Red Cell Distribution Width 17.4 % (11.5-14.5) Platelet Count 239 x10^3/uL (140-400) Neutrophils (%) (Auto) 89 % (31-73) Lymphocytes (%) (Auto) 5 % (24-48) Monocytes (%) (Auto) 6 % (0-9) Eosinophils (%) (Auto) 0 % (0-3) Basophils (%) (Auto) 0 % (0-3) Neutrophils # (Auto) 15.6 x10^3uL (1.8-7.7) Lymphocytes # (Auto) 0.9 x10^3/uL (1.0-4.8) Monocytes # (Auto) 1.0 x10^3/uL (0.0-1.1) Eosinophils # (Auto) 0.0 x10^3/uL (0.0-0.7) Basophils # (Auto) 0.0 x10^3/uL (0.0-0.2) Segmented Neutrophils % 92 % (35-66) Lymphocytes % 5 % (24-48) Monocytes % 3 % (0-10) Platelet Estimate Adequate (ADEQUATE) Anisocytosis Slight Sodium Level 140 mmol/L (136-145) Potassium Level 5.3 mmol/L (3.5-5.1) Chloride Level 99 mmol/L (98-107) Carbon Dioxide Level 28 mmol/L (21-32) Anion Gap 13 (6-14) Blood Urea Nitrogen 37 mg/dL (8-26) Creatinine 1.8 mg/dL (0.7-1.3) Estimated GFR (Cockcroft-Gault) 38.7 BUN/Creatinine Ratio 21 (6-20) Glucose Level 130 mg/dL (70-99) Calcium Level 9.0 mg/dL (8.5-10.1) Magnesium Level 2.9 mg/dL (1.8-2.4) Total Bilirubin 0.5 mg/dL (0.2-1.0) Aspartate Amino Transf (AST/SGOT) 572 U/L (15-37) Alanine Aminotransferase (ALT/SGPT) 75 U/L (16-63) Alkaline Phosphatase 103 U/L (46-116) Troponin I Quantitative 0.089 ng/mL (0.000-0.055) KI-Rha-X-Type Natriuretic Peptide 6612 pg/mL (0-124) Total Protein 7.8 g/dL (6.4-8.2) Albumin 4.2 g/dL (3.4-5.0) Albumin/Globulin Ratio 1.2 (1.0-1.7) Salicylates Level 2.8 mg/dL (2.8-20.0) Salicylate Last Dose Date Salicylate Last Dose Time Acetaminophen Level < 2 mcg/ml (10-30) Acetaminophen Last Dose Date Acetaminophen Last Dose Time Ethyl Alcohol Level < 10 mg/dL (0-10) O2 Saturation 89 % (92-99) Arterial Blood pH 7.30 (7.35-7.45) Arterial Blood pH (Temp corrected) 7.28 Arterial Blood pCO2 at Patient Temp 54 mmHg (35-46) Arterial Blood pCO2 (Temp correct) 57 mmHg Arterial Blood pO2 at Patient Temp 61 mmHg (65-108) Arterial Blood pO2 (Temp corrected) 67 mmHg Arterial Blood HCO3 26 mmol/L (21-28) Arterial Blood Base Excess -2 mmol/L (-3-3) FiO2 28 Lactic Acid Level 2.5 mmol/L (0.4-2.0) Creatine Kinase 76379 U/L (39-308) Test 09/01/18 02:15 09/01/18 04:15 09/01/18 08:15 09/01/18 10:00 Urine Collection Type U cath Urine Color Franca Urine Clarity Clear Urine pH 5.0 Urine Specific [place] 1.025 Urine Protein Negative mg/dL (NEG-TRACE) Urine Glucose (UA) Negative mg/dL (NEG) Urine Ketones (Stick) Negative mg/dL (NEG) Urine Blood Large (NEG) Urine Nitrite Negative (NEG) Urine Bilirubin Small (NEG) Urine Urobilinogen Dipstick 0.2 mg/dL (0.2 mg/dL) Urine Leukocyte Esterase Negative (NEG) Urine RBC 0 /HPF (0-2) Urine WBC Occ /HPF (0-4) Urine Squamous Epithelial Cells Occ /LPF Urine Amorphous Sediment Present /HPF Urine Bacteria 0 /HPF (0-FEW) Urine Hyaline Casts Moderate /HPF Urine Granular Casts Occasional /HPF Urine Mucus Marked /LPF Urine Opiates Screen Pos (NEG) Urine Methadone Screen Neg (NEG) Urine Barbiturates Neg (NEG) Urine Phencyclidine Screen Neg (NEG) Urine Amphetamine/Methamphetamine Neg (NEG) Urine Benzodiazepines Screen Pos (NEG) Urine Cocaine Screen Neg (NEG) Urine Cannabinoids Screen Neg (NEG) Urine Ethyl Alcohol Neg (NEG) Lactic Acid Level 0.9 mmol/L (0.4-2.0) Troponin I Quantitative 0.090 ng/mL (0.000-0.055) 0.067 ng/mL (0.000-0.055) Nasal Screen MRSA (PCR) Negative (Negative) Laboratory Tests Test 09/01/18 08:15 09/01/18 10:00 Troponin I Quantitative 0.067 ng/mL (0.000-0.055) Nasal Screen MRSA (PCR) Negative (Negative) Problem List Problems Medical Problems: (1) Elevated LFTs Status: Acute (2) Lactic acidosis Status: Acute (3) Severe sepsis Status: Acute Assessment/Plan ongoing medical care no surgical indications will sign off, please call for questions SHANI DEL TORO MD 09/02/18 0918: SURGICAL PROGRESS NOTE Assessment/Plan Agree with Deborah assessment and plan VERENICE SARMIENTO APRN September 02, 2018 07:52 SHANI DEL TORO MD September 02, 2018 09:18
[2018-09-02 09:00] VITALS: BP 158/68
[2018-09-02] MEDS ORDERED: LISINOPRIL 20 MG TABLET PO SCH (09:00)
[2018-09-02] MEDS ORDERED: predniSONE 20 MG TABLET PO SCH (09:00)
[2018-09-02 09:09] VITALS: BP 158/68
[2018-09-02] MEDS: ASPIRIN ENTERIC COATED 81 MG TABLET.DR. PO SCH (09:09)
[2018-09-02] MEDS: diazePAM 5 MG TABLET PO SCH (09:10)
--- NOTE | 2018-09-02 09:30 | PDOC ---
Subjective: Subjective: Upset - says he never did anything wrong and never wanted to hurt anybody. I said I was sorry he was having a rough time and he said "no you're not." Objective: Objective: Chart reviewed, events overnight noted, reviewed w/ staff - pt signed out AMA but now admitted. Vital Signs: Vital Signs Date Time Temp Pulse Resp B/P (MAP) Pulse Ox O2 Delivery O2 Flow Rate FiO2 09/02/18 09:09 72 158/68 09/02/18 09:00 Room Air 09/02/18 06:00 22 09/02/18 00:12 97.0 97.0 09/01/18 19:00 91 09/01/18 18:00 2.0 Labs: Laboratory Tests Test 09/01/18 10:00 Nasal Screen MRSA (PCR) Negative Imaging: Echo 09/01 <Conclusion> The left ventricular systolic function is normal and the ejection fraction is within normal range. The Ejection Fraction is 55%. There is mild concentric left ventricular hypertrophy. Pacer lead noted in RV/RA. Technically difficult study PE: GEN: NAD, up to chair NEURO/PSYCH: awake and alert, upset A/P: Confusion, resp failure Elevated AST and ALT, cholelithiasis -- Ordered recheck of labs - cancelled due to pt planning to leave. LUIS RODRIGUEZ September 02, 2018 09:30
--- NOTE | 2018-09-02 10:31 | PDOC ---
PULMONARY PROGRESS NOTES Subjective NO SOA WANTS TO GO HOME SIGNED AMA PAPERS Vitals Vital Signs Date Time Temp Pulse Resp B/P (MAP) Pulse Ox O2 Delivery O2 Flow Rate FiO2 09/02/18 09:09 72 158/68 09/02/18 09:00 Room Air 09/02/18 06:00 22 09/02/18 00:12 97.0 97.0 09/01/18 19:00 91 09/01/18 18:00 2.0 General: Alert, No acute distress Lungs: Clear Cardiovascular: S1, Other Abdomen: Soft Extremities: No Edema Labs Laboratory Tests Test 09/01/18 00:43 09/01/18 00:50 09/01/18 01:00 09/01/18 01:15 White Blood Count 17.6 x10^3/uL (4.0-11.0) Red Blood Count 4.73 x10^6/uL (4.30-5.70) Hemoglobin 14.3 g/dL (13.0-17.5) Hematocrit 45.2 % (39.0-53.0) Mean Corpuscular Volume 96 fL (79-100) Mean Corpuscular Hemoglobin 30 pg (25-35) Mean Corpuscular Hemoglobin Concent 32 g/dL (31-37) Red Cell Distribution Width 17.4 % (11.5-14.5) Platelet Count 239 x10^3/uL (140-400) Neutrophils (%) (Auto) 89 % (31-73) Lymphocytes (%) (Auto) 5 % (24-48) Monocytes (%) (Auto) 6 % (0-9) Eosinophils (%) (Auto) 0 % (0-3) Basophils (%) (Auto) 0 % (0-3) Neutrophils # (Auto) 15.6 x10^3uL (1.8-7.7) Lymphocytes # (Auto) 0.9 x10^3/uL (1.0-4.8) Monocytes # (Auto) 1.0 x10^3/uL (0.0-1.1) Eosinophils # (Auto) 0.0 x10^3/uL (0.0-0.7) Basophils # (Auto) 0.0 x10^3/uL (0.0-0.2) Segmented Neutrophils % 92 % (35-66) Lymphocytes % 5 % (24-48) Monocytes % 3 % (0-10) Platelet Estimate Adequate (ADEQUATE) Anisocytosis Slight Sodium Level 140 mmol/L (136-145) Potassium Level 5.3 mmol/L (3.5-5.1) Chloride Level 99 mmol/L (98-107) Carbon Dioxide Level 28 mmol/L (21-32) Anion Gap 13 (6-14) Blood Urea Nitrogen 37 mg/dL (8-26) Creatinine 1.8 mg/dL (0.7-1.3) Estimated GFR (Cockcroft-Gault) 38.7 BUN/Creatinine Ratio 21 (6-20) Glucose Level 130 mg/dL (70-99) Calcium Level 9.0 mg/dL (8.5-10.1) Magnesium Level 2.9 mg/dL (1.8-2.4) Total Bilirubin 0.5 mg/dL (0.2-1.0) Aspartate Amino Transf (AST/SGOT) 572 U/L (15-37) Alanine Aminotransferase (ALT/SGPT) 75 U/L (16-63) Alkaline Phosphatase 103 U/L (46-116) Troponin I Quantitative 0.089 ng/mL (0.000-0.055) FG-Duy-R-Type Natriuretic Peptide 6612 pg/mL (0-124) Total Protein 7.8 g/dL (6.4-8.2) Albumin 4.2 g/dL (3.4-5.0) Albumin/Globulin Ratio 1.2 (1.0-1.7) Salicylates Level 2.8 mg/dL (2.8-20.0) Salicylate Last Dose Date Salicylate Last Dose Time Acetaminophen Level < 2 mcg/ml (10-30) Acetaminophen Last Dose Date Acetaminophen Last Dose Time Ethyl Alcohol Level < 10 mg/dL (0-10) O2 Saturation 89 % (92-99) Arterial Blood pH 7.30 (7.35-7.45) Arterial Blood pH (Temp corrected) 7.28 Arterial Blood pCO2 at Patient Temp 54 mmHg (35-46) Arterial Blood pCO2 (Temp correct) 57 mmHg Arterial Blood pO2 at Patient Temp 61 mmHg (65-108) Arterial Blood pO2 (Temp corrected) 67 mmHg Arterial Blood HCO3 26 mmol/L (21-28) Arterial Blood Base Excess -2 mmol/L (-3-3) FiO2 28 Lactic Acid Level 2.5 mmol/L (0.4-2.0) Creatine Kinase 44544 U/L (39-308) Test 09/01/18 02:15 09/01/18 04:15 09/01/18 08:15 09/01/18 10:00 Urine Collection Type U cath Urine Color Franca Urine Clarity Clear Urine pH 5.0 Urine Specific [place] 1.025 Urine Protein Negative mg/dL (NEG-TRACE) Urine Glucose (UA) Negative mg/dL (NEG) Urine Ketones (Stick) Negative mg/dL (NEG) Urine Blood Large (NEG) Urine Nitrite Negative (NEG) Urine Bilirubin Small (NEG) Urine Urobilinogen Dipstick 0.2 mg/dL (0.2 mg/dL) Urine Leukocyte Esterase Negative (NEG) Urine RBC 0 /HPF (0-2) Urine WBC Occ /HPF (0-4) Urine Squamous Epithelial Cells Occ /LPF Urine Amorphous Sediment Present /HPF Urine Bacteria 0 /HPF (0-FEW) Urine Hyaline Casts Moderate /HPF Urine Granular Casts Occasional /HPF Urine Mucus Marked /LPF Urine Opiates Screen Pos (NEG) Urine Methadone Screen Neg (NEG) Urine Barbiturates Neg (NEG) Urine Phencyclidine Screen Neg (NEG) Urine Amphetamine/Methamphetamine Neg (NEG) Urine Benzodiazepines Screen Pos (NEG) Urine Cocaine Screen Neg (NEG) Urine Cannabinoids Screen Neg (NEG) Urine Ethyl Alcohol Neg (NEG) Lactic Acid Level 0.9 mmol/L (0.4-2.0) Troponin I Quantitative 0.090 ng/mL (0.000-0.055) 0.067 ng/mL (0.000-0.055) Nasal Screen MRSA (PCR) Negative (Negative) Medications Active Scripts Medications Dose Route/Sig Max Daily Dose Days Date Category Crestor (Rosuvastatin Calcium) 20 Mg Tablet 1 Tab PO DAILY 09/01/18 Reported Valium (Diazepam) 10 Mg Tablet 10 Mg PO TID 09/01/18 Reported Prednisone (Prednisone) 10 Mg Tablet 30 Mg PO DAILY 06/28/17 Rx Lisinopril 20 Mg Tablet 20 Mg PO DAILY 30 06/28/17 Rx Diltiazem 24HR Cd (Diltiazem Hcl) 120 Mg Cap.er.24h 120 Mg PO DAILY 30 3/9/18 Rx Famotidine 20 Mg Tablet 20 Mg PO QHS 14 06/28/17 Rx Benzonatate 100 Mg Capsule 100 Mg PO [id number] 06/28/17 Rx Amox Tr-K Clv 500-125 Mg Tab (Amoxicillin/Potassium Clav) 1 Each Tablet 1 Tab PO BID 3 06/28/17 Rx Hydrocodone-Apap 10-325 (Hydrocodone Bit/Acetaminophen) 1 Each Tablet 1 Tab PO PRN Q8HRS 06/23/17 Reported Ms Contin (Morphine Sulfate) 30 Mg Tablet.er 1 Tab PO BID 06/23/17 Reported Aspir 81 (Aspirin) 81 Mg Tablet.dr 81 Mg PO DAILY 06/23/17 Reported Impression . 1. Cfgzy-pb-xoekqgo hypercapnic hypoxemic respiratory failure, multifactorial. 2. Acute exacerbation of chronic obstructive pulmonary disease. 3. Narcotic abuse leading to compromised respiratory status. 4. Tobacco dependence. 5. History of post-traumatic stress disorder. 6. Elevated troponin level. 7. Elevated AST. 8. Cholelithiasis. 9. Positive urine drug screen. 10. Acute kidney injury. Plan . 1. Continue nasal cannula oxygen. 2. Steroids and breathing treatments. 3. The patient and instructed on the importance of finding a balance between narcotic use and overuse; they should follow up with a PCP. 4. We will decrease Valium to 5 t.i.d. This is certainly a contributing factor in the patient's clinical status and clinical presentation. 5. Discontinue tobacco use. 6. Follow Cardiology input. 8. Follow GI input. PT SIGNED AMA, LEAVING HOME TODAY WITH PEACE FIERRO MD September 02, 2018 10:30
--- NOTE | 2018-09-02 11:04 | NUR ---
PT leaving AMA, paperwork signed. Leaving via transport with .
--- NOTE | 2018-09-02 11:04 | NUR ---
SS following for discharge planning. SS reviewed pt chart. Pt is from home with spouse. PAT team consulted by ICU due to altered mental status and issues with narcotic abuse and history. SS spoke with Amado from the PAT team. Amado reported that he met with pt and discussed addiction and offered services. Pt declined services. Pt requesting to leave and signed AMA paperwork. Pt will discharge to home with spouse via cab at 1130.
--- NOTE | 2018-09-02 14:43 | DS ---
DATE OF DISCHARGE: 09/02/2018 ADMISSION DIAGNOSIS: Respiratory failure, probably secondary to too many narcotics. DISCHARGE DIAGNOSIS: Resolving respiratory failure. HOSPITAL COURSE: The patient is a pleasant 58-year-old male who is on a lot of narcotics. We admitted the patient with respiratory failure to the ICU. We have been giving him breathing treatments and oxygen, and empiric IV antibiotics. We did consult Pulmonary. Today, the patient suddenly woke up and wants to leave against medical advice. His actually has since then also been admitted with the same thing. She wants to leave as well. We will let the patient go ahead and go. I am going to discharge the since she is stable. DISPOSITION: Home. ACTIVITY: As tolerated. DIET: Low sodium. MEDICATIONS: Please see the MRAD. TOTAL TIME: 31 minutes. NAINA CRISOSTOMO DO DR: MACHO/candi JOB#: [id number] / [id number]
== END 2018-09-02 11:20 | disposition home or self-care (01) | DRG 917 ==
LOC: ER 00:28 → 1 WEST ICU 02:30
PROVIDERS: ADMIT Internal Medicine; ATTEND Internal Medicine
PROC: 5A09357 Assistance with Respiratory Ventilation, Less than 24 Consecutive Hours, Continuous Positive Airway Pressure (ICD-10-PCS; principal; 2018-09-01)
DX: T40.601A Poisoning by unspecified narcotics, accidental (unintentional), initial encounter (principal); A41.9 Sepsis, unspecified organism; J96.21 Acute and chronic respiratory failure with hypoxia; I50.43 Acute on chronic combined systolic (congestive) and diastolic (congestive) heart failure; G93.41 Metabolic encephalopathy; J96.22 Acute and chronic respiratory failure with hypercapnia; R65.20 Severe sepsis without septic shock; I47.2 Ventricular tachycardia; K82.1 Hydrops of gallbladder; N17.9 Acute kidney failure, unspecified; I42.9 Cardiomyopathy, unspecified; F11.20 Opioid dependence, uncomplicated; J44.1 Chronic obstructive pulmonary disease with (acute) exacerbation; E78.00 Pure hypercholesterolemia, unspecified; F43.10 Post-traumatic stress disorder, unspecified; F17.210 Nicotine dependence, cigarettes, uncomplicated; K80.20 Calculus of gallbladder without cholecystitis without obstruction; I25.10 Atherosclerotic heart disease of native coronary artery without angina pectoris; I11.0 Hypertensive heart disease with heart failure; M06.9 Rheumatoid arthritis, unspecified; G89.29 Other chronic pain; E87.5 Hyperkalemia; E78.5 Hyperlipidemia, unspecified; I48.0 Paroxysmal atrial fibrillation; W18.39XA Other fall on same level, initial encounter; Y93.89 Activity, other specified; Z88.6 Allergy status to analgesic agent; Z95.0 Presence of cardiac pacemaker; Z82.49 Family history of ischemic heart disease and other diseases of the circulatory system; Z86.73 Personal history of transient ischemic attack (TIA), and cerebral infarction without residual deficits; Z79.82 Long term (current) use of aspirin; Z86.74 Personal history of sudden cardiac arrest; Y92.89 Other specified places as the place of occurrence of the external cause; Y99.8 Other external cause status
CPT/HCPCS: 36415; 36600; 51702; 70450; 71045; 72125; 74176; 76705; 80053; 80307; 80329; 81001; 82550; 82805; 83605; 83735; 83880; 84484; 85007; 85025; 87040; 87641; 93005; 93306; 94640; 94660; 96361; 96365; 96375; 99406; G0480; J0696; J2930; J3490; J7030; J7512; J7620; 99291-25